=== PATIENT | male | born 1935 | race Caucasian/White ===

== ENCOUNTER 2023-04-21 08:32 | Outpatient (RCR) | payer MEDICARE, SELFPAY ==
[2023-04-21 09:10] VITALS: BP 99/55
[2023-04-21 09:34] VITALS: BP 107/56
[2023-04-21 11:49] VITALS: BP 111/53
== END 2023-05-10 23:59 | disposition home or self-care (01) ==
LOC: OID 08:32
PROVIDERS: ATTENDING PHYSICIAN Internal Medicine Hematology & Oncology; PRIMARYCARE PHYSICIAN Urology
DX: D61.818 Other pancytopenia (principal)
CPT/HCPCS: 36430; 86850; 86900; 86901; 86920; P9016

== ENCOUNTER 2023-05-10 22:52 | Inpatient (IN) | payer MEDICARE, SELFPAY ==
[2023-05-10 16:18] VITALS: BMI 20.6
[2023-05-10 16:23] VITALS: BP 156/95
[2023-05-10 17:06] LABS: % Basophils 0.3 % (0-2); % Immature Granulocytes 3.3 % (0-0.5); % Lymphocytes 20.6 % (20.5-51.1); % Monocytes 27.2 % (1.7-9.3); % Neutrophils 48.6 % (42.2-75.2); Absolute Immature Granulocytes 0.1 10^3/uL (0-0.05); Absolute Lymphocytes 0.6 10^3/uL (1.2-3.4); Absolute Monocytes 0.8 10^3/uL (0.1-0.6); Absolute Neutrophils 1.5 10^3/uL (1.4-6.5); Hematocrit 29.3 % (39.0-52.0); Mean Corp Hgb Conc. 30.7 g/dL (33.0-37.0); Mean Corpuscular Hgb 30.6 pg (27.0-31.0); Mean Corpuscular Volume 99.7 fL (80.0-94.0); Nucleated Red Blood Cells % 2.3 % (-); Platelet Count 49 10^3/uL (130-400); Red Blood Cell Count 2.94 10^6/uL (4.70-6.10); Red Cell Dist. Width 22.7 % (11.5-14.5)
[2023-05-10 17:11] LABS: ALT (SGPT) 17 U/L (0-50); AST (SGOT) 29 U/L (17-59); Albumin 3.7 g/dl (3.5-5.0); Alkaline Phosphatase 73 U/L (38-126); Blood Urea Nitrogen 31 mg/dl (9-20); Calcium 9.1 mg/dl (8.4-10.2); Carbon Dioxide 25 mmol/L (22-30); Chloride 106 mmol/L (98-107); Estimated Creatinine Clearance 54 ml/min; Glucose 129 mg/dl (70-99); Potassium 3.6 mmol/L (3.5-5.1); Sodium 140 mmol/L (135-145); Total Protein 6.5 g/dl (6.3-8.2); eGFR > 60.00
[2023-05-10 17:22] LABS: Troponin I 0.016 ng/ml
[2023-05-10 18:10] LABS: Absolute Neutrophils -Man Diff 1.5 10^3/uL (1.4-6.5); Band Neutrophils 0 % (0-3); Lymphocytes 26 % (20-51); Monocytes 21 % (2-9); Pathologist Reviewed No; Segmented Neutrophils 53 % (42-75)
[2023-05-10 18:11] LABS: Platelets Checked Yes
[2023-05-10 18:12] LABS: Anisocytosis 2+; Macrocytosis 1+; Normal RBC Morphology No; Ovalocytes 4+
[2023-05-10 18:25] LABS: Total Cells Counted 100
[2023-05-10 18:44] VITALS: BP 161/101
[2023-05-10 19:00] VITALS: BP 157/98
[2023-05-10 20:00] VITALS: BP 148/83
[2023-05-10 20:05] LABS: NT-proBNP 21300 pg/ml
--- NOTE | 2023-05-10 21:25 | ED.GENMED ---
History of Present Illness
General
Chief Complaint: Breathing Problem
Source: patient and family
Exam Limitations: none
Time Seen by Provider: 05/10/23 18:49
Nursing documentation reviewed up to this point in time: agreed with
Travel History
Have you had any contact with someone who has COVID-19?: No
Do you have any symptoms of coronavirus? Fever > 100 degrees, chills, cough, shortness of breath, sore throat, loss of taste or smell, muscle aches, or headache?: No
History of Present Illness
History of Present Illness:
87-year-old male presents emergency department due to difficulty with breathing when walking. He denies chest pain. He did have chest pain earlier. No nausea vomiting diarrhea, no fevers. Daughter notes he has had some swelling in his legs.
Past History
Past History
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
ED Past Surgical History: Cardiac
Social History
Tobacco: Non-smoker
Alcohol: None
Drug: None
Personal:
Living: with family
Employment: Other
Family History
Family History: Other
Review of Systems
Review of Systems
Allergies reviewed?: Yes
All Other Systems: Not applicable
Constitutional: Reports weight gain
EENT: Reports no symptoms
Respiratory: Reports trouble breathing
Cardiac: Reports chest pain
ABD/GI: Reports no symptoms
: Reports no symptoms
Musculoskeletal: Reports edema
Skin: Reports no symptoms
Neurological: Reports no symptoms
Endocrine: Reports no symptoms
Hematologic/Lymphatic: Reports no symptoms
Psychiatric: Reports no symptoms
Phy Exam
Physical Exam
Physical Exam:
Physical Exam
General: afebrile
Neck: supple. no meningeal signs. normal posterior pharynx
Heart: s1/s2 regular rate and rhythm, no murmur. equal radial
pulses.
HEENT: Pupils equal round reactive to light, EOMI
Lungs: mild respiratory distress. rales bilaterally
Abdomen: normal bowel sounds. not tender. no CVAT
Neuro: alert and oriented. no focal neurological deficits cranial nerves II through XII intact
Skin: no rash
Psychiatric: well kept. interactive and cooperative
Extremities: no edema. no calf tenderness. negative homans. good distal pulses
Scores
Heart Failure Risk
Heart Failure Risk Score: Yes
History of Stroke or TIA: No
History of intubation for respiratory distress: No
Heart rate on ED arrival >/= 110: No
SaO2 <90% on arrival on room air: No
HR >/=110 during 3min walk test (or too ill to perform test): No
ECG has acute ischemic changes: No
Urea >/=12mmol/L (BUN 33.6mg/dL): No
Serum CO2>/=35mmol/L: No
Troponin I or T elevated to IL Level (0.4mg/dL): No
NT-proBNP >/=5,000ng/L (5,000pg/ml): Yes
HF Risk Score: 1
Admission Status: MEDIUM RISK 5.1% Consider observation or discharge to home with homecare & f/u visit to PCP/Correctional Therapy Director, or SNF for treatment
Course
Orders/Labs/Results
Orders:
Orders
05/10/23 16:20
Electrocardiogram (*1) Urgent
Reason for Study: Chest Pain
EKG- Treatment ONCE
05/10/23 16:39
Complete Blood Count/With Diff Urgent
Comprehensive Metabolic Panel Urgent
Manual Differential Urgent
Comment: ADD ON
NT-proBNP Urgent
Comment: ADD ON
Troponin I Urgent
05/10/23 19:04
Add On- LAB Urgent
Tests Added?: pro bnp
CR Chest - 2 Views Urgent
Comment:
Reason For Exam: short of breath
05/10/23 21:34
Furosemide [Lasix] 40 mg IV NOW STA
05/10/23 22:09
Admit/Transfer Patient As Directed
Co-Sign Provider:
Level of Care: Inpatient admission
Assign to:: Telemetry
Physician / Group: Terrance
Diagnosis: CHF, Right Pleural Effusion
Reason for Telemetry: Acute Heart Failure
Date to Stop Telemetry: 05/13/23
Time to Stop Telemetry: 11:00
Reason for Hospitalization: IV diuretics, thoracentesis
Expected length of stay greater than two midnights?: Yes
ELOS- Estimated Length of Stay in days: 3
I certify the patient meets the requirements for IP care: Yes
05/10/23 22:12
Code Status As Directed
Resuscitation Status: Do not resuscitate
Reached after discussion with pt or family/Healthcare POA: Yes
05/10/23 22:13
DNR Bracelet Application ONCE
05/13/23 11:00
DC Protocol for Telemetry ONCE
Abnormal Lab Results
05/10/23
16:39
WBC 3.0 L 10^3/uL
(4.8-10.8)
RBC 2.94 L 10^6/uL
(4.70-6.10)
Hgb 9.0 L g/dL
(13.0-18.0)
Hct 29.3 L %
(39.0-52.0)
MCV 99.7 H fL
(80.0-94.0)
MCHC 30.7 L g/dL
(33.0-37.0)
RDW 22.7 H %
(11.5-14.5)
Plt Count 49 L 10^3/uL
(130-400)
Abs Immat Gran (auto) 0.1 H 10^3/uL
(0-0.05)
Absolute Lymphs (auto) 0.6 L 10^3/uL
(1.2-3.4)
Absolute Monos (auto) 0.8 H 10^3/uL
(0.1-0.6)
Immature Gran % 3.3 H %
(0-0.5)
Monocytes % 27.2 H %
(1.7-9.3)
Monocytes (Manual) 21 H %
(2-9)
BUN 31 H mg/dl
(9-20)
Glucose 129 H mg/dl
(70-99)
Total Bilirubin 2.0 H mg/dl
(0.2-1.3)
05/10/23 16:39
05/10/23 16:39
Vital Signs
Initial and Last Documented VS:
Initial Vital Signs
Temp Pulse Resp BP Pulse Ox
97.8 F 90 16 156/95 99
05/10/23 16:23 05/10/23 16:23 05/10/23 16:23 05/10/23 16:23 05/10/23 16:23
Last Documented Vital Signs
Temp Pulse Resp BP Pulse Ox
97.8 F 93 32 155/83 96
05/10/23 16:23 05/10/23 23:20 05/10/23 20:15 05/10/23 23:20 05/10/23 22:15
MDM/Problems Addressed
Differential Diagnosis Includes:
pneumonia, chf
MDM/Problems Addressed:
87-year-old male with CHF exacerbation, admit to hospitalist
*Critical Care Note
Total Time (30-74mins, 75-104mins- exclusive of procedures): Not Applicable
ED Attending Note
-
Portions of this chart may have been created with voice recognition software.� Occasional wrong word or��sound alike� substitutions may have occurred due to the inherent limitations of voice recognition software.
Discharge Plan
Departure
Patient Disposition: Admit
Date of Disposition: 05/10/23
Time of Disposition: 21:26
Admit to: Telemetry
Presentation/result/management discussed w/ accepting MD/DO: Hospitalist
Condition: Good
Discharge Problem:
Acute exacerbation of CHF (congestive heart failure)
Interventions
Interventions:
*Risk Screen - Suicide Last Done: 05/10/23 16:23
*Neglect/Abuse Screening Last Done: 05/10/23 16:23
ED- Fall Risk Assessment Last Done: 05/10/23 16:23
*ED COVID-19 Vaccine History Last Done: 05/10/23 16:23
ED- Cardiac Assessment Last Done: 05/10/23 18:51
ED- Pulmonary Assessment Last Done: 05/10/23 18:51
--- NOTE | 2023-05-10 22:21 | HPS.HSE ---
Addendum entered and electronically signed by Jurgen Carlos DO 05/10/23 23:20:
Patient seen and examined independently. Agree with findings and plan as set forth by Aminata Cervantes PA-C.
Patient is an 87y M with PMH significant for ASCVD, A-Fib an MDS who presents to ED complaining of several weeks of worsening SOB. Patient states that he has been more edematous in the lower extremities as well. Dyspnea was initially with
exertion but is now present at rest as well. Occasional chest discomfort, but pain-free at present. His dyspnea is worse with reclining / lying flat. Patient does not weigh himself at home. He denies any prior history of thoracentesis.
Ass:
Acute on Chronic HFpEF
Right > Left Pleural Effusions
ASCVD
Paroxysmal Atrial Fibrillation
Valvular Heart Disease
Benign Hypertension
MDS / Smoldering Myeloma
Plan:
Admit for further evaluation and treatment.
IV Lasix for diuresis and follow for improvement in dyspnea, edema, etc.
IR evaluation for diagnostic / therapeutic R thoracentesis.
Likely secondary to chronic CHF.
Cardiology evaluation.
Update Echo.
Continue usual outpatient CV med regimen.
Original Note:
Family Physician
-
Family Physician: Bianca Mai DO
Chief Complaint
-
Shortness of breath
History of Present Illness
Patient is an 87-year-old male past medical history of CAD, Valvular Heart Disease, A-Fib and MDS who presents with increasing shortness of breath. Additional history is obtained from patient's daughter at the bedside. Patient been having
increasing lower extremity edema for an extended period of time. However, over the last couple of days his daughter noticed that his hands were also swollen. Patient also developed increased dyspnea on exertion over the last 2 days. He reports
associated orthopnea as well as intermittent chest discomfort. He does not weigh himself on a regular basis. He denies fevers, sweats or chills.
Medical History
Past Medical History
Past Medical History: Reports Other
Additional Past Medical History:
Coronary Artery Disease s/p Stent
Chronic HFpEF
Paroxysmal Atrial Fibrillation
Valvular Heart Disease
Essential Hypertension
Hyperlipidemia
Myelodysplastic Syndrome / Smoldering Multiple Myeloma
BPH
Past Surgical History: Reports Other
Additional Past Surgical History:
Bioprosthetic Aortic Valve Replacement x 2
Right Carotid Endarterectomy
Appendectomy
Hernia Repair
Social History
Tobacco: Former Smoker
Living: Assisted Living
Family History
Family History: Not pertinent
Allergies / Home Medications
Allergies reflects when Allergies were last updated in [facility].
Home Medications with original date entered in [facility]
Allergy/Medication List:
Allergies
Allergy/AdvReac Type Severity Reaction Status Date / Time
Penicillins Allergy Mild Rash Verified 05/10/23 16:26
Home Medications
rosuvastatin 20 mg tablet 20 mg PO QPM High Cholesterol 07/17/13
ascorbic acid (vitamin C) 250 mg tablet (Vitamin C) 250 mg PO DAILY Supplement 03/01/23
epoetin isatu 40,000 unit/mL injection solution (Procrit) 40,000 unit SC TH low RBC 03/01/23
famotidine 40 mg tablet 40 mg PO DAILY Gastrointestinal Issue 03/01/23
furosemide 20 mg tablet 20 mg PO DAILY Fluid Retention/Swelling 03/01/23
mirabegron 50 mg tablet,extended release 24 hr (Myrbetriq) 50 mg PO DAILY Urinary Issue 03/01/23
oxycodone-acetaminophen 5 mg-325 mg tablet 1 tab PO Q8HPRN PRN severe pain 03/01/23
polyethylene glycol 3350 17 gram oral powder packet (Miralax) 17 g PO DAILYPRN PRN constipation 03/01/23
acetaminophen 325 mg tablet 650 mg PO Q4HPRN PRN mild pain/JACOME/temp> 100.4F #60 tabs 12/04/23
metoprolol tartrate 50 mg tablet 25 mg PO BID 05/10/23
miconazole nitrate 2 % topical ointment (Critic-Aid Clear AF (miconazole)) 1 applic topical BID skin rash 05/10/23
zinc oxide-vitamin B5-vit E 11.3% topical cream (Balmex Adult Care) 1 applic topical BID sacrum and scrotum 05/10/23
Review of Systems
-
A 12 point ROS was completed and negative except as noted: Yes
Constitutional: Denies Fever or Chills
Respiratory: Reports Cough and Trouble Breathing
Cardiac: Reports Chest Pain; Denies Palpitations
Physical Exam
Vital Signs
Vital Signs
Temp Pulse Resp BP Pulse Ox
97.8 F 88 32 148/83 95
05/10/23 16:23 05/10/23 20:15 05/10/23 20:15 05/10/23 20:00 05/10/23 20:15
Physical Exam
General: Comfortable and Other (Visibly short of breath with exertion to lean forward for posterior auscultation of the lungs)
HEENT: Anicteric and Moist mucous membranes
Respiratory: Crackles (Faint left base), Decreased Breath Sounds (Left base) and Other (Absent breath sounds right base)
Cardiac: S1/S2, Regular Rhythm and Murmur (III/ systolic murmur)
GI: Soft and Non Tender
Rectal: Deferred by Provider
Musculoskeletal: No Clubbing, No Cyanosis and Other (+4 pitting edema bilateral lower ext)
Skin: Warm and Dry
Neuro: Awake, Alert, Oriented and Nonfocal/grossly intact
Psych: Calm
Laboratory Results
-
05/10/23 16:39
05/10/23 16:39
Laboratory Results
Total Bilirubin 2.0 mg/dl (0.2-1.3) H 05/10/23 16:39
AST 29 U/L (17-59) 05/10/23 16:39
ALT 17 U/L (0-50) 05/10/23 16:39
Alkaline Phosphatase 73 U/L (38-126) 05/10/23 16:39
Troponin I 0.016 ng/ml 05/10/23 16:39
Data Reviewed
-
Lab Data: Labs Reviewed by me
Old Records: Reviewed
Impression/Plan
-
Acute on Chronic HFpEF
-Consult Cardiology
-Check Echo
-Continue Lasix 40mg IV Daily
-Monitor Is&Os and Daily Weights
Large Right Pleural Effusion
-Consult IR for diagnostic and therapeutic thoracentesis
Coronary Artery Disease s/p Stent
-Patient reports cardiac cath last year which reveal obstructive disease however unable to stent due to chronic thrombocytopenia
Paroxysmal Atrial Fibrillation
-Patient is not on anticoagulant due to thrombocytopenia
-Continue Metoprolol
Valvular Heart Disease s/p AVR x 2
-Check Echo
Essential Hypertension
-Continue Metoprolol
Hyperlipidemia
-Continue Crestor
Myelodysplastic Syndrome / Smoldering Multiple Myeloma
-Monitor CBC
Code Status: DNR
[2023-05-10] MEDS: LASIX 40 MG IV (23:20)
[2023-05-10 23:21] VITALS: BP 155/83
[2023-05-11] VITALS (10 sets, daily range): BP systolic 137–169; BP diastolic 72–93; PULSE 93–111; O2SAT 93–94; BMI 26.5; BMI 26.1
[2023-05-11 06:57] LABS: Mean Corpuscular Hgb 31.7 pg (27.0-31.0); Mean Corpuscular Volume 99.2 fL (80.0-94.0); Platelet Count 41 10^3/uL (130-400); Red Blood Cell Count 2.52 10^6/uL (4.70-6.10); Red Cell Dist. Width 22.4 % (11.5-14.5)
[2023-05-11 07:09] LABS: INR 1.37; PT 16.9 Sec (11.4-14.6)
[2023-05-11 07:16] LABS: White Blood Cell Count 2.2 10^3/uL (4.8-10.8)
[2023-05-11 07:20] LABS: ALT (SGPT) 13 U/L (0-50); AST (SGOT) 28 U/L (17-59); Albumin 3.2 g/dl (3.5-5.0); Alkaline Phosphatase 71 U/L (38-126); Blood Urea Nitrogen 26 mg/dl (9-20); Calcium 8.7 mg/dl (8.4-10.2); Carbon Dioxide 27 mmol/L (22-30); Chloride 110 mmol/L (98-107); Direct Bilirubin 0.5 mg/dl (0.0-0.4); Estimated Creatinine Clearance 69 ml/min; Glucose 96 mg/dl (70-99); HDL Cholesterol 22 mg/dl; LDL Cholesterol, Calculated 44 mg/dl; Magnesium 2.1 mg/dl (1.6-2.3); Potassium 3.3 mmol/L (3.5-5.1); Sodium 139 mmol/L (135-145); Total Bilirubin 1.9 mg/dl (0.2-1.3); Total Cholesterol 83 mg/dl (50-199); Total Protein 5.8 g/dl (6.3-8.2); Triglyceride 89 mg/dl (10-149); Very Low Density Lipoprotein 17 mg/dl (0-30); eGFR > 60.00
[2023-05-11 07:30] LABS: LDH 991 U/L (120-246)
--- NOTE | 2023-05-11 07:31 | SUR.PHASEI ---
@0159; Monitor alarmed for 9 beat run VT.Pt was resting quietly in bed.PT denied CP/SOB.Skin warm and dry.V/S stable and charted.INDIA Martínez, instructed on above note via TT.
[2023-05-11] MEDS: LASIX 40 MG IV ×2 (08:41→16:11)
[2023-05-11] MEDS: LOPRESSOR 25 MG PO (08:42)
[2023-05-11] MEDS: MYRBETRIQ EXTENDED RELEASE 50 MG PO (08:42)
[2023-05-11] MEDS: VITAMIN C 250 MG PO (08:42)
[2023-05-11] MEDS: PEPCID 40 MG PO (08:42)
--- NOTE | 2023-05-11 09:17 | CON.CAR ---
Addendum entered and electronically signed by Cooper Brown MD 05/11/23 11:33:
Patient seen and examined in collaboration with GRAVITY MANAGER; agree with below.
-87-year-old male with medical history as outlined below, including PAF (no anticoagulation secondary to MDS), recent TAVR, and CAD with stenting (specifics unknown) admitted with shortness of breath; cardiology consulted for heart failure, BNP
21,000.
-The patient will undergo an echocardiogram today.
-The patient underwent a right thoracentesis today whereby 2 L were removed.
-Recommend Lasix 40 mg IV twice daily.
-Recommend changing from metoprolol to tartrate to metoprolol succinate 50 mg once daily.
-recruiting assistant; will follow.
Original Note:
Consultation
Consultation Request
Date/Time Consultation Requested: 05/11/2354
Date/Time Consultation Performed: 05/11/23914
Requesting Provider: Aminata WOODS
Performing Provider: Consuelo OSBORNE for Dr. Brown
Reason for Consultation: CHF
Medical History
-
Chief Complaint: SOB
History of Present Illness:
87 y/o male (follows with Dr. Delgado in cardiology office- last seen 2020. [facility] with history of HTN, bio AVR (Shweta 2013), then TAVR 2021 per daughter, transient post-op AFIB (no recurrence
as of 2020 OV), 1st degree AVB, carotid stenosis s/p R CEA, hx coronary stenting- most recent 04/2021 per daughter, but cath over summer no intervention since he is not on AP due to thrombocytopenia, hyperlipidemia, and myelodysplastic syndrome (gets
transfusions/injections) who is here for SOB x 1 week, which worsened over past few days. It is worse with exertion and laying. There is associated BLE edema. He is not on a diuretic. He does not check weights normally. CXR shows b/l pleural
effusions and he is scheduled for thoracentesis. He is also being diuresed. I spoke with his daughter Sameera over the phone for the above information, with patient's permission.
Past Medical History
Past Medical History: Arrhythmias, CAD, HTN, Hypercholesterolemia, Valvular Disease and Other (as above)
Past Surgical History: Cardiac
Social History
Tobacco: Non-Smoker
Living: Assisted Living
Family History
Family History: Reviewed & Not Pertinent
Allergies / Home Medications
Allergy/AdvReac Type Severity Reaction Status Date / Time
Penicillins Allergy Mild Rash Verified 05/10/23 16:26
Medication Instructions Recorded Confirmed Type
rosuvastatin 20 mg tablet 20 mg PO QPM High Cholesterol 07/17/13 05/10/23 History
ascorbic acid (vitamin C) 250 mg 250 mg PO DAILY Supplement 03/01/23 05/10/23 History
tablet (Vitamin C)
epoetin isatu 40,000 unit/mL 40,000 unit SC TH low RBC 03/01/23 05/10/23 History
injection solution (Procrit)
famotidine 40 mg tablet 40 mg PO DAILY Gastrointestinal 03/01/23 05/10/23 History
Issue
furosemide 20 mg tablet 20 mg PO DAILY Fluid 03/01/23 05/10/23 History
Retention/Swelling
mirabegron 50 mg tablet,extended 50 mg PO DAILY Urinary Issue 03/01/23 05/10/23 History
release 24 hr (Myrbetriq)
oxycodone-acetaminophen 5 mg-325 1 tab PO Q8HPRN PRN severe pain 03/01/23 05/10/23 History
mg tablet
polyethylene glycol 3350 17 gram 17 g PO DAILYPRN PRN constipation 03/01/23 05/10/23 History
oral powder packet (Miralax)
acetaminophen 325 mg tablet 650 mg PO Q4HPRN PRN mild 03/13/23 05/10/23 Rx
pain/JACOME/temp> 100.4F #60 tabs
metoprolol tartrate 50 mg tablet 25 mg PO BID 05/10/23 05/10/23 History
miconazole nitrate 2 % topical 1 applic topical BID skin rash 05/10/23 05/10/23 History
ointment (Critic-Aid Clear AF
(miconazole))
zinc oxide-vitamin B5-vit E 11.3% 1 applic topical BID sacrum and 05/10/23 05/10/23 History
topical cream (Balmex Adult Care) scrotum
Review of Systems
-
History Source: Patient and Other (and chart)
All other systems: Negative unless noted
Respiratory: Trouble Breathing
Musculoskeletal: Edema
Physical Exam
Vital Signs
Temp Pulse Resp BP Pulse Ox
98.2 F 98 14 163/93 93
05/11/23 03:10 05/11/23 08:42 05/11/23 03:10 05/11/23 08:42 05/11/23 03:10
Lab Results
05/11/23 06:28
05/11/23 06:28
Troponin I 0.016 ng/ml 05/10/23 16:39
Oce-H-Sxmlqtkkcvp Pept 82766 pg/ml 05/10/23 16:39
Physical Exam
General: Well Developed, Well Nourished and No Apparent Distress
HEENT: Normocephalic and Anicteric
Respiratory: Other (diminished to b/l bases)
Cardiac: Regular Rhythm, Murmur (II/ systolic) and Peripheral Edema (moderate BLE edema)
Musculoskeletal: Edema
Skin: Warm and Dry
Neuro: Awake, Alert and Oriented
Psych: Calm
Impression / Plan
-
Acute HF (type unknown, but echo 2020 EF normal)
-update echo
-IV Lasix, which requires intensive monitoring for toxicity- will increase to BID
Pleural effusion:
-getting thoracentesis today
Hypokalemia:
-replace now and follow closely with diuresis. Added standing potassium as well.
NSVT:
-9 beat run on monitor
-replace potassium as above
-check echo
-continue BB and follow- adjusting to Toprol XL
CAD:
-hx stenting most recent 04/2021 per my discussion with daughter. Cath in summer 2022, but no intervention due to not on AP as below; also per daughter. Records requested.
-not on ASA due to thrombocytopenia. Continue statin and BB.
-trop is fine.
Bifascicular block:
-new from last EKG I can find 2019
-denies any dizziness
-follow telemetry
hx Bio AVR:
-2013. Then TAVR 04/2021 per my discssion with daughter. Records requested.
-check echo
HTN:
-BP elevated at times
-monitor with diuresis and adjusted BB
Data Reviewed
-
EKG: Tracing Personally Visualized and interpreted (SR with PVC's, bifasicular block)
Radiology: Report Reviewed by me (CXR: Large right and small left pleural effusions.)
Medical Tests (Nuc Med, Echo etc): Report Reviewed by me (echo 08/11/20: Normal left ventricular systolic function. Left ventricular ejection fraction is 70%. Normal right ventricular size and function. Bioprosthetic aortic valve with diminished
excursion, with a peak/mean gradient of 62/30 mmHg. Mild mitral regurgitation. )
Labs: Labs Reviewed by me
[2023-05-11] MEDS: KCL 40 MEQ PO ×2 (10:43→16:10)
[2023-05-11 10:53] LABS: Body Fluid pH 7.52
[2023-05-11 11:01] LABS: Body Fluid WBC 170 /CUMM
[2023-05-11 11:04] LABS: Body Fluid Second Tech CMB
[2023-05-11 11:08] LABS: Body Fluid Amylase < 30 U/L; Body Fluid Glucose 113 mg/dl; Body Fluid LDH 255 U/L; Body Fluid Protein 2.6 g/dl; Body Fluid Triglycerides < 30 mg/dl
--- NOTE | 2023-05-11 16:19 | W.PN.HOSP.TC ---
Today's Communication/Plan
-
Status post thoracentesis.
IV diuresis.
Procrit
Assessment / Plan
Assessment / Plan
Impression:
Acute CHF mildly reduced EF.
Right pleural effusion, large.
Hypokalemia
NSVT
Conditions prior to admission
CAD.
Bifascicular block
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
Essential hypertension.
MDS/smoldering myeloma with chronic pancytopenia.
Plan:
Acute CHF
Right pleural effusion. Thoracentesis 05/11 2 L transudate.
Improved respiratory status and currently off supplemental oxygen.
Repeat echocardiogram 05/11 LVEF 40-45% and large RV, severe by lateral atrial dilation. Status post TAVR, status post bioprosthetic MVR. Pulmonary hypertension with PAP 55-60 mmHg
Continue IV diuresis
Continue beta-kamari, changed to metoprolol succinate.
Hypokalemia.
Replete and monitor with diuresis.
NSVT 9 beat.
Echocardiogram as above.
Continue beta-kamari, follow electrolytes.
CAD with no evidence for acute coronary syndrome.
Continue beta-kamari.
Not on aspirin due to 2 severe anemia.
MDS.
Pancytopenia.
Monitor CBC
Procrit weekly.
Anticipated Discharge: 24 - 48 hours
Subjective/Interval History
-
Date of Service: May 11, 2023
Objective Data
-
Labs:
Laboratory Results
05/11/23
06:28
WBC 2.2 L*
Hgb 8.0 L
Hct 25.0 L
Plt Count 41 L
PT 16.9 H
INR 1.37
Sodium 139
Potassium 3.3 L
Chloride 110 H
Carbon Dioxide 27
BUN 26 H
Creatinine 0.9
Glucose 96
Calcium 8.7
Total Bilirubin 1.9 H
AST 28
ALT 13
Alkaline Phosphatase 71
Vital Signs:
Vital Signs
Temp Pulse Resp BP Pulse Ox
98.2 F 89 17 145/82 96
05/11/23 12:42 05/11/23 16:11 05/11/23 12:42 05/11/23 16:11 05/11/23 12:42
I&O
05/10/23 05/11/23 05/12/23
06:59 06:59 06:59
Intake Total 0 / 0
Output Total 1899
Balance -1899 / -1899
Physical Exam
-
General: Well Developed and No Apparent Distress
HEENT: Normocephalic, Atraumatic and Moist Mucous Membranes
Respiratory: Clear to Auscultation
Cardiac: Regular Rhythm and S1/S2; Negative Murmur, Rub or Gallop
GI: Soft, Nontender, Nondistended and Normal Bowel Sounds; Negative Organomegaly
Rectal: Deferred by Provider
Musculoskeletal: No Clubbing, No Cyanosis and No Edema
Skin: Negative Rash
Neuro: Nonfocal/Grossly Intact
--- NOTE | 2023-05-11 16:27 | CM ---
met with daughter and che bundy.patient was not able to answeer many of the questions i pasked him.patient lives at [facility] .his is in lock down unit at [facility].patient ambulates with a walker,is independent in bathing and
grooming.he is adm with chf/r pleural effusion and will discharge bath to [facility] when stable for discharge.daughter asking if attending will place a consult to dr moe whom patient is due to see in follow up.
Plan discharge back to [facility] when stable.daughter gregor will transport back to facility.
[2023-05-11] MEDS: CRESTOR 20 MG PO (17:15)
[2023-05-11] MEDS: TOPROL XL 50 MG PO (17:16)
[2023-05-11] MEDS: RETACRIT 40000 UNITS SC (17:29)
[2023-05-12] VITALS (7 sets, daily range): BP systolic 93–148; BP diastolic 41–85; PULSE 78; O2SAT 96; BMI 23.9
[2023-05-12] MEDS: LASIX 20 MG IV (00:17)
--- NOTE | 2023-05-12 05:47 | PTCARENOTE ---
Pt SpO2 90% on RA, placed on 2L SpO2 93%. Upon assessment this RN heard B/L coarse crackles. HAND SPRING REPAIRER HELPER notified. Stat IV Lasix ordered - see MAR for administration. Follow up assessment pt lungs clear to auscultate. Pt comfortable in bed. VSS. Will
continue to monitor.
[2023-05-12 06:34] LABS: Hematocrit 25.6 % (39.0-52.0); Hemoglobin 7.9 g/dL (13.0-18.0); Mean Corp Hgb Conc. 30.9 g/dL (33.0-37.0); Mean Corpuscular Hgb 30.7 pg (27.0-31.0); Mean Corpuscular Volume 99.6 fL (80.0-94.0); Platelet Count 34 10^3/uL (130-400); Red Blood Cell Count 2.57 10^6/uL (4.70-6.10); Red Cell Dist. Width 22.4 % (11.5-14.5)
[2023-05-12 07:04] LABS: Blood Urea Nitrogen 31 mg/dl (9-20); Calcium 8.7 mg/dl (8.4-10.2); Carbon Dioxide 30 mmol/L (22-30); Chloride 103 mmol/L (98-107); Estimated Creatinine Clearance 69 ml/min; Glucose 102 mg/dl (70-99); Potassium 3.2 mmol/L (3.5-5.1); Sodium 140 mmol/L (135-145); eGFR > 60.00
[2023-05-12 07:48] LABS: Band Neutrophils 4 % (0-3); Lymphocytes 27 % (20-51); Metamyelocytes 2 % (-); Monocytes 22 % (2-9); Myelocytes 1 % (-); Normal RBC Morphology No; Nucleated Red Blood Cells 2 (-); Platelets Checked Yes; Segmented Neutrophils 44 % (42-75)
[2023-05-12 07:51] LABS: Acanthocytes FEW; Anisocytosis 1+; Hypochromasia 1+; Ovalocytes 3+; Total Cells Counted 100
[2023-05-12 07:54] LABS: Absolute Neutrophils -Man Diff 0.9 10^3/uL (1.4-6.5)
[2023-05-12] MEDS: MYRBETRIQ EXTENDED RELEASE 50 MG PO (08:35)
[2023-05-12] MEDS: LASIX 40 MG IV ×2 (08:35→15:32)
[2023-05-12] MEDS: KCL 40 MEQ PO ×2 (08:35→20:26)
[2023-05-12] MEDS: PEPCID 40 MG PO (08:35)
[2023-05-12] MEDS: VITAMIN C 250 MG PO (08:35)
--- NOTE | 2023-05-12 08:37 | W.PN.CD ---
Today's Communication / Plan
-
- IV Lasix BID. Aim for at least 180 lbs
- replete K again
- Echo stable but reflects HF (PASP up, etc)
Impression / Plan
-
Impression: 87-year-old male with dyspnea concerning for HFrEF
Plan
Acute HF (type unknown, but echo 2020 EF normal)
-updated echo -> EF 40-45%, TAVR OK, PASP 60
-IV Lasix BID
-unclear goal weight - he doesn't know ('180-something') and recorded weights are scattered.
-aim for at least 180 lbs
Pleural effusion:
Hypokalemia: replete again
NSVT:
- replete K
- continue BB
- EF 40-45%
CAD:
-hx stenting most recent 04/2021 per daughter. Cath in summer 2022, but no intervention due to not on AP as below; also per daughter. Records requested.
-not on ASA due to thrombocytopenia. Continue statin and BB.
-trop is fine.
Bifascicular block:
-new from last EKG 2019
-denies any dizziness
-follow telemetry
hx Bio AVR:
-2013. Then TAVR 04/2021 . Records requested.
-check echo
HTN:
-BP elevated at times
-monitor with diuresis and adjusted BB
Subjective
Data
TTE �
Left ventricular ejection fraction is approximately 40-45%. Mild global hypokinesis with severe inferolateral wall hypokinesis/akinesis.
Mild to moderate mitral regurgitation.
Status-post TAVR in previous bioprosthetic aortic valve replacement; peak/mean�gradients of 33/17 mmHg.� Trace aortic regurgitation.
Mild to moderate tricuspid regurgitation. Estimated pulmonary artery pressure of 55-60 mmHg.�Right and left pleural effusion present.
�
Physical Exam
Vital Signs/Labs
Vital Signs
Temp Pulse Resp BP Pulse Ox
36.5 C 93 20 148/85 95
05/12/23 03:49 05/12/23 03:49 05/12/23 03:49 05/12/23 03:49 05/12/23 03:49
05/11/23 05/12/23 05/13/23
06:59 06:59 06:59
Actual Weight 203 lb 186 lb
05/12/23 06:08
05/12/23 06:08
PT 16.9 Sec (11.4-14.6) H 05/11/23 06:28
INR 1.37 05/11/23 06:28
Magnesium 2.1 mg/dl (1.6-2.3) 05/11/23 06:28
Triglycerides 89 mg/dl (10-149) 05/11/23 06:28
LDL Cholesterol, Calc 44 mg/dl 05/11/23 06:28
VLDL Cholesterol, Calc 17 mg/dl (0-30) 05/11/23 06:28
HDL Cholesterol 22 mg/dl 05/11/23 06:28
05/10/23
16:39
Nim-B-Rztcpweiwtp Pept [id number]
LAB Results
05/10/23
16:39
Troponin I 0.016
Physical Exam
Constitutional: No acute distress
EENT: Anicteric and Moist mucous membranes
Cardiovascular: Rhythm & rate is regular, Diastolic murmur absent, Pedal edema present and Systolic murmur present
Respiratory: Respiratory effort normal and Crackles Present
GI: Soft, Distention absent and Non tender
Neuro/Psych: Alert
Data Reviewed
-
Date of Service: May 12, 2023
Labs: Other (PVS without NSVT)
--- NOTE | 2023-05-12 14:00 | CON.ONC ---
Impression
Impression
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
Smoldering�multiple�myeloma
Chronic pancytopenia
Neutropenia
Symptomatic�anemia
Bilateral pleural effusions R>L s/p thoracentesis
Acute SOB/HAND
Plan
Plan
Neutropenic precautions
Follow CBC w/ diff daily
Transfuse as needed to maintain Hgb >7.5 and PLT >15
Supportive care s/p thoracentesis
Weekly regimen with [facility] as follows:
1.�Nplate�10�mg/kg�weekly
2.�Aranesp�300�mcg�weekly
3.�Zarxio�480�mcg�weekly
4.�Transfusions�when�necessary: Hgb�<7.5�or�PLT<15,000
Last administered on 05/04/23; was scheduled 05/11 but hospitalized
[facility] office has been notified of patient's admission. He is scheduled 05/18/23@ 10:30am for follow up and weekly injections. Discussed with daughter that we can adjust accordingly based on hospital discharge. We will follow along.
Patient History
History of Present Illness
Asim Zhong is an 87 year old male known to Dr. 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 He has had multiple bone marrow biopsies most recently 221. He has
been managed on a combination of Romiplostim (Nplate) and Aranesp as well as transfusion support as needed. He was last seen in the office 04/20/23 and received Aranesp and Nplate on 05/04/23. He recently relocated from [facility] to [facility] to
be closer to family. Family has been opposed to systemic chemotherapy and additional bone marrow biopsies. They are agreeable to blood transfusions and wish for palliative/supportive care.
Patient had called our office 05/08 with complaints of shortness of breath and fatigue x2-3 days. He was instructed to call Cardiology. He presented to the ER 05/10 with worsening dyspnea on exertion and at rest, lower extremity edema, and
intermittent chest pain. CXR revealed bilateral pleural effusions R>L. He underwent right thoracentesis yesterday 05/11 in which 1900cc was drained. He was admitted for further evaluation and treatment.
Past-Medical/Surgical History
Myelodysplastic syndrome
Smoldering multiple myeloma
Chronic pancytopenia
CAD s/p cardiac stent 2021
T12 compression fracture
Aortic valve replacement 2013
Appendectomy
Hernia repair
Former smoker
Current ETOH weekly
Hypercholesterolemia
Patient Medication
Medication Instructions Recorded Confirmed Last Taken Type
rosuvastatin 20 mg tablet 20 mg PO QPM High Cholesterol 07/17/13 05/10/23 04/20/23 History
ascorbic acid (vitamin C) 250 mg 250 mg PO DAILY Supplement 03/01/23 05/10/23 04/21/23 History
tablet (Vitamin C)
epoetin isatu 40,000 unit/mL 40,000 unit SC TH low RBC 03/01/23 05/10/23 03/12/23 History
injection solution (Procrit)
famotidine 40 mg tablet 40 mg PO DAILY Gastrointestinal 03/01/23 05/10/23 04/21/23 History
Issue
furosemide 20 mg tablet 20 mg PO DAILY Fluid 03/01/23 05/10/23 04/21/23 History
Retention/Swelling
mirabegron 50 mg tablet,extended 50 mg PO DAILY Urinary Issue 03/01/23 05/10/23 04/21/23 History
release 24 hr (Myrbetriq)
oxycodone-acetaminophen 5 mg-325 1 tab PO Q8HPRN PRN severe pain 03/01/23 05/10/23 03/12/23 History
mg tablet
polyethylene glycol 3350 17 gram 17 g PO DAILYPRN PRN constipation 03/01/23 05/10/23 03/12/23 History
oral powder packet (Miralax)
acetaminophen 325 mg tablet 650 mg PO Q4HPRN PRN mild 03/13/23 05/10/23 Unknown Rx
pain/JACOME/temp> 100.4F #60 tabs
metoprolol tartrate 50 mg tablet 25 mg PO BID Blood Pressure/Atrial 05/10/23 05/10/23 Unknown History
fibrillation
miconazole nitrate 2 % topical 1 applic topical BID skin rash 05/10/23 05/10/23 Unknown History
ointment (Critic-Aid Clear AF
(miconazole))
zinc oxide-vitamin B5-vit E 11.3% 1 applic topical BID sacrum and 05/10/23 05/10/23 Unknown History
topical cream (Balmex Adult [facility]) scrotum
Active Medications
Generic Name Dose Route Start Last Admin
Trade Name Freq PRN Reason Stop Dose Admin
Acetaminophen 650 mg 05/11/23 00:55
Acetaminophen 325 Mg Tablet PO 06/08/23 00:54
Q4HPRN PRN
mild pain/JACOME/temp> 100.4F
Ascorbic Acid 250 mg 05/11/23 08:00 05/12/23 08:35
Ascorbic Acid 250 Mg Tablet PO 06/08/23 07:59 250 mg
DAILY NI Administration
Famotidine 40 mg 05/11/23 08:00 05/12/23 08:35
Famotidine 40 Mg Tablet PO 06/08/23 07:59 40 mg
DAILY NI Administration
Furosemide 40 mg 05/11/23 16:00 05/12/23 08:35
Furosemide 40 Mg (10 Mg/Ml) 4 Ml Vial IV 06/08/23 15:59 40 mg
BID AT 0800,1600 NI Administration
Metoprolol Succinate 50 mg 05/11/23 18:00 05/11/23 17:16
Metoprolol 50 Mg Extended Release Tablet PO 06/08/23 17:59 50 mg
QPM NI Administration
Mirabegron 50 mg 05/11/23 08:00 05/12/23 08:35
Mirabegron Extended Release 25 Mg Tab (Non Form) PO 06/08/23 07:59 50 mg
DAILY NI Administration
Oxycodone/Acetaminophen 1 tablet 05/11/23 00:55
Oxycodone 5 Mg/Apap 325 Mg (Percocet) PO 05/25/23 00:54
Q8HPRN PRN
severe pain
Potassium Chloride 40 meq 05/12/23 20:00
Potassium Chloride 20 Meq Extended Release Tablet PO 06/09/23 19:59
BID NI
Rosuvastatin Calcium 20 mg 05/11/23 18:00 05/11/23 17:15
Rosuvastatin (Crestor) 20 Mg Tablet PO 06/08/23 17:59 20 mg
QPM NI Administration
Sodium Chloride 0 flush 05/11/23 01:00
Sodium Chloride 0.9% (Flush) Syringe IV 06/08/23 00:59
PER PROTOCOL NI
Review of Systems
-
Unable to obtain full review of systems at this time due to: Acuity
History Source: Family, Physician, Coordinated Provider and Records
Constitutional: Reports Fatigue
EENT: Reports No Symptoms
Respiratory: Reports No Symptoms
Cardiac: Reports No Symptoms
GI: Reports No Symptoms
Breast: Reports N/A
: Reports No Symptoms
Musculoskeletal: Reports Edema
Skin: Reports No Symptoms
Neuro: Reports No Symptoms
Endocrine: Reports No Symptoms
Hematologic/Lymphatic: Reports Bruising
Allergy / Immunology: Reports No Symptoms
Psych: Reports No Symptoms
Physical Exam
-
Patient is resting in bed, dozing off at times. Arouses to voice although hard of hearing. Forgetful. He states his breathing is more comfortable s/p thoracentesis. Daughter at bedside.
General: Comfortable and Appears Chronically Ill; Negative Respiratory Distress, Pain or Chills
HEENT: Negative Jaundice
Cardiology: Normal Sinus Rhythm
Pulmonary: Other (coarse/dim on RA)
GI: Normal Bowel Sounds
Genito-Urinary: Other (condom catheter in place, clear yellow urine)
Musculoskeletal: Edema, Right Lower Extrem (+2 ) and Edema, Left Lower Extrem (+2)
Extremities: Pulses Present
Neurology: Non Focal
Skin: Warm
Psych: Calm
Labs
Lab Results
WBC 2.0 10^3/uL (4.8-10.8) L* 05/12/23 06:08
RBC 2.57 10^6/uL (4.70-6.10) L 05/12/23 06:08
Hgb 7.9 g/dL (13.0-18.0) L 05/12/23 06:08
Hct 25.6 % (39.0-52.0) L 05/12/23 06:08
MCV 99.6 fL (80.0-94.0) H 05/12/23 06:08
MCH 30.7 pg (27.0-31.0) 05/12/23 06:08
MCHC 30.9 g/dL (33.0-37.0) L 05/12/23 06:08
RDW 22.4 % (11.5-14.5) H 05/12/23 06:08
Plt Count 34 10^3/uL (130-400) L 05/12/23 06:08
MPV Not Reportable 05/12/23 06:08
Abs Immat Gran (auto) 0.1 10^3/uL (0-0.05) H 05/10/23 16:39
Absolute Neuts (auto) 1.5 10^3/uL (1.4-6.5) 05/10/23 16:39
Absolute Lymphs (auto) 0.6 10^3/uL (1.2-3.4) L 05/10/23 16:39
Absolute Monos (auto) 0.8 10^3/uL (0.1-0.6) H 05/10/23 16:39
Absolute Eos (auto) 0.0 10^3/uL (0-0.7) 05/10/23 16:39
Absolute Basos (auto) 0.0 10^3/uL (0-0.2) 05/10/23 16:39
Immature Gran % 3.3 % (0-0.5) H 05/10/23 16:39
Neutrophils % 48.6 % (42.2-75.2) 05/10/23 16:39
Lymphocytes % 20.6 % (20.5-51.1) 05/10/23 16:39
Monocytes % 27.2 % (1.7-9.3) H 05/10/23 16:39
Eosinophils % 0.0 % (0-6) 05/10/23 16:39
Basophils % 0.3 % (0-2) 05/10/23 16:39
Creatinine 0.9 mg/dL (0.7-1.3) 05/12/23 06:08
05/10/23 CXR: Large right and small left pleural effusions.
05/11/23 Successful ultrasound-guided thoracentesis, yielding 1900 cc of clear yellow pleural fluid.
Vital Signs
Vital Signs
Temp Pulse Resp BP Pulse Ox
97.5 F 85 17 127/70 93
05/12/23 11:00 05/12/23 11:00 05/12/23 11:00 05/12/23 11:00 05/12/23 11:21
--- NOTE | 2023-05-12 15:27 | CM ---
patient from [facility] adm with chf/right pleural effusion. he had a thoracentesis with 2 liters fluid.on diuretic,seen by pt/ot who recommended patient can return to [facility] where he can access aides to hlep him ambulate.
Plan is to discharge home to [facility].Daughter will trnsport pateint back to facility.
--- NOTE | 2023-05-12 16:54 | W.PN.HOSP.TC ---
Today's Communication/Plan
-
IV diuresis
Monitor CBC
Assessment / Plan
Assessment / Plan
Impression:
Acute CHF mildly reduced EF.
Right pleural effusion, large.
Hypokalemia
NSVT
Conditions prior to admission
CAD.
Bifascicular block
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
Essential hypertension.
MDS/smoldering myeloma with chronic pancytopenia.
Plan:
Acute CHF
Right pleural effusion. Thoracentesis 05/11 2 L transudate.
Improved respiratory status and currently off supplemental oxygen.
Repeat echocardiogram 05/11 LVEF 40-45% and large RV, severe by lateral atrial dilation. Status post TAVR, status post bioprosthetic MVR. Pulmonary hypertension with PAP 55-60 mmHg
Continue IV diuresis. Weight improvement with 93-89 kg.
Continue beta-kamari, changed to metoprolol succinate.
Hypokalemia.
Replete and monitor with diuresis.
NSVT 9 beat.
Echocardiogram as above.
Continue beta-kamari, follow electrolytes.
CAD with no evidence for acute coronary syndrome.
Continue beta-kamari.
Not on aspirin due to 2 severe anemia.
MDS.
Pancytopenia.
Monitor CBC
Procrit weekly administered on 05/11
Hematology/oncology consultation with consideration of Neupogen and Nplate
Discussed with patient's daughter at the bedside
Anticipated Discharge: 24 - 48 hours
Subjective/Interval History
-
Date of Service: May 12, 2023
Objective Data
-
Labs:
Laboratory Results
05/12/23
06:08
WBC 2.0 L*
Hgb 7.9 L
Hct 25.6 L
Plt Count 34 L
Sodium 140
Potassium 3.2 L
Chloride 103
Carbon Dioxide 30
BUN 31 H
Creatinine 0.9
Glucose 102 H
Calcium 8.7
Vital Signs:
Vital Signs
Temp Pulse Resp BP Pulse Ox
98.6 F 77 16 120/60 93
05/12/23 15:00 05/12/23 15:00 05/12/23 15:00 05/12/23 15:32 05/12/23 15:00
I&O
05/11/23 05/12/23 05/13/23
06:59 06:59 06:59
Intake Total 0 / 0 710 / 710
Output Total 1900 / 1900 4700 / 4700
Balance -1900 / -1900 -3990 / -3990
Physical Exam
-
General: Well Developed and No Apparent Distress
HEENT: Normocephalic, Atraumatic and Moist Mucous Membranes
Respiratory: Clear to Auscultation
Cardiac: Regular Rhythm and S1/S2; Negative Murmur, Rub or Gallop
GI: Soft, Nontender, Nondistended and Normal Bowel Sounds; Negative Organomegaly
Rectal: Deferred by Provider
Musculoskeletal: No Clubbing, No Cyanosis and No Edema
Skin: Negative Rash
Neuro: Nonfocal/Grossly Intact
[2023-05-12] MEDS: TOPROL XL 50 MG PO (17:25)
[2023-05-12] MEDS: CRESTOR 20 MG PO (17:25)
[2023-05-13 03:45] VITALS: BP 101/48
[2023-05-13 05:47] VITALS: BMI 24.1
[2023-05-13 06:00] VITALS: BMI 23.4
[2023-05-13 07:06] LABS: Mean Corp Hgb Conc. 30.8 g/dL (33.0-37.0); Mean Corpuscular Hgb 30.4 pg (27.0-31.0); Mean Corpuscular Volume 98.9 fL (80.0-94.0); Nucleated Red Blood Cells % 1.2 % (-); Red Blood Cell Count 2.63 10^6/uL (4.70-6.10); Red Cell Dist. Width 21.9 % (11.5-14.5)
--- NOTE | 2023-05-13 07:16 | W.PN.CD ---
Today's Communication / Plan
-
-Continue 40 mg IV BID.
-Aggressively replete potassium.
Impression / Plan
-
Impression: 87-year-old male with dyspnea concerning for HFrEF
Plan
Acute HFrEF (40-45%):
-updated echo -> EF 40-45%, TAVR OK, PASP 60
-Continue 40 mg IV BID.
-unclear goal weight - he doesn't know ('180-something') and recorded weights are scattered.
-aim for at least 180 lbs
Pleural effusion:
-Status-postthoracentesis.
Hypokalemia:
-Aggressively replete potassium.
NSVT:
-Telemetry stable.
-Continue Toprol-XL 50 mg daily.
CAD:
-hx stenting most recent 04/2021 per daughter. Cath in summer 2022, but no intervention due to not on AP as below; also per daughter. Records requested.
-not on ASA due to thrombocytopenia. Continue statin and BB.
-trop is fine.
Bifascicular block:
-new from last EKG 2019, but had a recent TAVR.
-denies any dizziness
-Telemetry stable.
hx Bio AVR:
-2013. Then TAVR 04/2021 . Records requested.
-check echo
HTN:
-BP elevated at times
-monitor with diuresis and adjusted BB
Subjective:
No major events overnight. No cardiac complaints this a.m.
Data
TTE 05/11/2023:
Left ventricular ejection fraction is approximately 40-45%. Mild global hypokinesis with severe inferolateral wall hypokinesis/akinesis.
Mild to moderate mitral regurgitation.
Status-post TAVR in previous bioprosthetic aortic valve replacement; peak/mean�gradients of 33/17 mmHg.� Trace aortic regurgitation.
Mild to moderate tricuspid regurgitation. Estimated pulmonary artery pressure of 55-60 mmHg.�Right and left pleural effusion present.
�
Physical Exam
Vital Signs/Labs
Vital Signs
Temp Pulse Resp BP Pulse Ox
98.4 F 72 18 101/48 92
05/13/23 03:45 05/13/23 03:45 05/13/23 03:45 05/13/23 03:45 05/13/23 03:45
05/12/23 05/13/23 05/14/23
06:59 06:59 06:59
Actual Weight 84.368 kg 85.1 kg
PT 16.9 Sec (11.4-14.6) H 05/11/23 06:28
INR 1.37 05/11/23 06:28
Magnesium 2.1 mg/dl (1.6-2.3) 05/11/23 06:28
Triglycerides 89 mg/dl (10-149) 05/11/23 06:28
LDL Cholesterol, Calc 44 mg/dl 05/11/23 06:28
VLDL Cholesterol, Calc 17 mg/dl (0-30) 05/11/23 06:28
HDL Cholesterol 22 mg/dl 05/11/23 06:28
05/10/23
16:39
Vcr-V-Xwgmfkesnky Pept [id number]
LAB Results
05/10/23
16:39
Troponin I 0.016
Physical Exam
Constitutional: No acute distress and Comfortable
EENT: Anicteric
Cardiovascular: Rhythm & rate is regular, Pedal edema present (2+), Systolic murmur present (2-3/6) and S1S2 is normal
Respiratory: Respiratory effort normal and Lungs clear to auscul.
GI: Soft
Neuro/Psych: AO x 3
Other: Skin (Warm, dry, intact)
Data Reviewed
-
Date of Service: May 13, 2023
EKG: Tracing Personally Visualized and interpreted (Telemetry: Sinus rhythm with occasional PVCs)
Echo: Tracing Personally Visualized and interpreted (EF 40-45%)
Labs: Labs Reviewed by me
[2023-05-13 07:27] LABS: Blood Urea Nitrogen 39 mg/dl (9-20); Calcium 8.3 mg/dl (8.4-10.2); Carbon Dioxide 31 mmol/L (22-30); Chloride 106 mmol/L (98-107); Estimated Creatinine Clearance 56 ml/min; Glucose 83 mg/dl (70-99); Potassium 3.8 mmol/L (3.5-5.1); Sodium 137 mmol/L (135-145); eGFR > 60.00
[2023-05-13 07:35] VITALS: BP 130/67
[2023-05-13 07:58] LABS: White Blood Cell Count 1.7 10^3/uL (4.8-10.8)
[2023-05-13 08:46] LABS: Anisocytosis 1+; Band Neutrophils 0 % (0-3); Hypochromasia 1+; Lymphocytes 32 % (20-51); Monocytes 16 % (2-9); Myelocytes 2 % (-); Normal RBC Morphology No; Ovalocytes 3+; Platelets Checked Yes; Polychromasia Slight; Segmented Neutrophils 50 % (42-75)
[2023-05-13 08:48] LABS: Absolute Neutrophils -Man Diff 0.8 10^3/uL (1.4-6.5); Platelet Count 28 10^3/uL (130-400)
[2023-05-13] MEDS: KCL 40 MEQ PO ×2 (08:57→19:24)
[2023-05-13] MEDS: LASIX 40 MG IV ×2 (08:57→16:07)
[2023-05-13 08:58] LABS: Total Cells Counted 100
[2023-05-13] MEDS: VITAMIN C 250 MG PO (08:58)
[2023-05-13] MEDS: MYRBETRIQ EXTENDED RELEASE 50 MG PO (08:58)
[2023-05-13] MEDS: PEPCID 40 MG PO (08:59)
[2023-05-13 11:43] VITALS: BP 123/66
--- NOTE | 2023-05-13 12:39 | W.PN.HOSP.TC ---
Today's Communication/Plan
-
Continue current plan
Assessment / Plan
Assessment / Plan
87-year-old male past medical history of CAD, Valvular Heart Disease, A-Fib and MDS who presents with increasing shortness of breath.� Patient has been having increasing lower extremity edema and hands were also swollen.� Patient developed increased
dyspnea on exertion over the last 2 days.� With associated orthopnea as well as intermittent chest discomfort.� He denied fevers, sweats or chills.
Impression:
Acute CHF mildly reduced EF.
Right pleural effusion, large.
Hypokalemia
NSVT
Conditions prior to admission
CAD.
Bifascicular block
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
Essential hypertension.
MDS/smoldering myeloma with chronic pancytopenia.
Plan:
1. Acute CHF, continues to have cough.
Right pleural effusion. Thoracentesis 05/11 2 L transudate.
Improved respiratory status and currently off supplemental oxygen.
Repeat echocardiogram 05/11 LVEF 40-45% and large RV, severe by lateral atrial dilation. Status post TAVR, status post bioprosthetic MVR. Pulmonary hypertension with PAP 55-60 mmHg
-Continue IV diuresis. Weight improvement with 93-89 kg.
-Continue beta-kamari, changed to metoprolol succinate.
2. Hypokalemia. Improving
-Replete and monitor with diuresis.
3. NSVT 9 beat.
Echocardiogram as above.
-Continue beta-kamari, follow electrolytes.
4. CAD with no evidence for acute coronary syndrome.
Not on aspirin due to 2 severe anemia.
-Continue beta-kamari.
5. MDS. with Pancytopenia.
Procrit weekly administered on 05/11
Hematology/oncology consultation with consideration of Neupogen and Nplate
24 hour trend:
WBC 2.0 -> 1.7
H/H 7.9/25.6 -> 8.0/26.0
PLT 34 -> 28
-Monitor CBC
- if he starts to bleed, transfuse platelets
Code DNR
VCD for DVTp
Anticipated Discharge: > 48 hours
Subjective/Interval History
-
Date of Service: May 13, 2023
No new problems. Feels OK.
Objective Data
-
Labs:
Laboratory Results
05/13/23
06:29
WBC 1.7 L*
Hgb 8.0 L
Hct 26.0 L
Plt Count 28 L*
Sodium 137
Potassium 3.8
Chloride 106
Carbon Dioxide 31 H
BUN 39 H
Creatinine 1.1
Glucose 83
Calcium 8.3 L
Vital Signs:
Vital Signs
Temp Pulse Resp BP Pulse Ox
98.0 F 69 16 123/66 96
05/13/23 11:43 05/13/23 11:43 05/13/23 11:43 05/13/23 11:43 05/13/23 11:43
I&O
05/12/23 05/13/23 05/14/23
06:59 06:59 06:59
Intake Total 710 / 710 720 / 720
Output Total 4700 / 4700 2375 / 2375
Balance -3990 / -3990 -1655 / -1655
Review of Systems
-
History Source: Patient
All other systems: Reviewed and negative
Physical Exam
-
General: Well Developed, Well Nourished, No Apparent Distress and Comfortable
HEENT: Normocephalic, Atraumatic, Moist Mucous Membranes, Nose Appears Normal and Ears Appear Normal
Respiratory: Decreased Breath Sounds
Cardiac: Regular Rhythm and S1/S2
GI: Soft, Nontender and Nondistended
Musculoskeletal: No Clubbing, No Cyanosis, No Edema, Edema, Right Lower Extrem and Edema, Left Lower Extrem
Skin: Warm and Dry; Negative Rash or Ulcers
Neuro: Awake, Alert and Oriented
Psych: Calm
Data Reviewed
-
Labs: Labs Reviewed by me
[2023-05-13 15:51] VITALS: BP 123/68
[2023-05-13] MEDS: TOPROL XL 50 MG PO (17:27)
[2023-05-13] MEDS: CRESTOR 20 MG PO (17:27)
[2023-05-13] MEDS: OCEAN, SALINE MIST 1 SPRAYS NASAL (19:24)
[2023-05-13 19:25] VITALS: BP 113/64
[2023-05-13 23:20] VITALS: BP 120/60
[2023-05-14 03:42] VITALS: BP 119/61
[2023-05-14 05:33] VITALS: BMI 21.8
[2023-05-14 07:18] LABS: Hematocrit 25.7 % (39.0-52.0); Hemoglobin 7.7 g/dL (13.0-18.0); Mean Corpuscular Hgb 30.4 pg (27.0-31.0); Mean Corpuscular Volume 101.6 fL (80.0-94.0); Platelet Count 30 10^3/uL (130-400); Red Blood Cell Count 2.53 10^6/uL (4.70-6.10); Red Cell Dist. Width 21.3 % (11.5-14.5)
[2023-05-14 07:27] LABS: White Blood Cell Count 1.2 10^3/uL (4.8-10.8)
[2023-05-14] MEDS: VITAMIN C 250 MG PO (07:55)
[2023-05-14] MEDS: KCL 40 MEQ PO ×2 (07:56→19:30)
[2023-05-14] MEDS: PEPCID 40 MG PO (07:56)
[2023-05-14] MEDS: LASIX 40 MG IV (07:56)
[2023-05-14 07:57] LABS: Blood Urea Nitrogen 41 mg/dl (9-20); Calcium 8.9 mg/dl (8.4-10.2); Carbon Dioxide 32 mmol/L (22-30); Chloride 101 mmol/L (98-107); Estimated Creatinine Clearance 58 ml/min; Glucose 88 mg/dl (70-99); Potassium 3.9 mmol/L (3.5-5.1); Sodium 138 mmol/L (135-145); eGFR > 60.00
[2023-05-14] MEDS: MYRBETRIQ EXTENDED RELEASE 50 MG PO (07:58)
[2023-05-14] MEDS: OCEAN, SALINE MIST 1 SPRAYS NASAL ×2 (07:58→19:30)
[2023-05-14 08:13] VITALS: BP 130/69
--- NOTE | 2023-05-14 08:54 | W.PN.HOSP.TC ---
Today's Communication/Plan
-
see bold
Assessment / Plan
Assessment / Plan
87-year-old male past medical history of CAD, Valvular Heart Disease, A-Fib and MDS who presented with increasing shortness of breath.� Patient has been having increasing lower extremity edema and hands were also swollen.� Patient developed
increased dyspnea on exertion over the last 2 days.� With associated orthopnea as well as intermittent chest discomfort.� He denied fevers, sweats or chills.
Impression:
Acute CHF mildly reduced EF.
Right pleural effusion, large.
Hypokalemia
NSVT
Conditions prior to admission
CAD.
Bifascicular block
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
Essential hypertension.
MDS/smoldering myeloma with chronic pancytopenia.
Plan:
Acute MFmrEF:
-with right pleural effusion s/p thoracentesis on 05/11/23 for 2L transudate
-was on 2L, now weaned to RA
-Repeat echocardiogram 05/11 LVEF 40-45% and large RV, severe by lateral atrial dilation. Status post TAVR, status post bioprosthetic MVR. Pulmonary hypertension with PAP 55-60 mmHg
-Continue IV Lasix (wt continues to decrease), BB
Hypokalemia, resolved
NSVT, 9 beats: Echocardiogram as above. Continue beta-kamari.
CAD: cont BB/statin. Not on ASA due to anemia.
MDS with chronic pancytopenia: Procrit weekly (administered on 05/11). Hematology/oncology consultation with consideration of Neupogen and Nplate.
DNR
SCDs (but with plts 30 remove SCDs if any bruising)
Anticipated Discharge: Within 24 hours
Subjective/Interval History
-
Date of Service: May 14, 2023
Pt reports coughing up 'dark stuff.' Denies hemoptysis.
Objective Data
-
Labs:
Laboratory Results
05/14/23
06:35
WBC 1.2 L*
Hgb 7.7 L
Hct 25.7 L
Plt Count 30 L
Sodium 138
Potassium 3.9
Chloride 101
Carbon Dioxide 32 H
BUN 41 H
Creatinine 1.0
Glucose 88
Calcium 8.9
Vital Signs:
Vital Signs
Temp Pulse Resp BP Pulse Ox
97.8 F 76 16 130/69 96
05/14/23 08:13 05/14/23 08:13 05/14/23 08:13 05/14/23 08:13 05/14/23 08:13
I&O
05/13/23 05/14/23 05/15/23
06:59 06:59 06:59
Intake Total 720 / 720 1140 / 1140
Output Total 2375 / 2375 2750 / 2750
Balance -1655 / -1655 -1610 / -1610
[2023-05-14 12:16] VITALS: BP 134/65
--- NOTE | 2023-05-14 15:11 | W.PN.CD ---
Today's Communication / Plan
-
-Continue 40 mg IV BID; has diuresed well during hospitalization (almost 20 kg).
-Will transition to Lasix 40 mg PO daily starting tomorrow, which should be his new home dose.
-Patient is currently 170 pounds, which should likely be his goal weight.
Impression / Plan
-
Impression: 87-year-old male with dyspnea concerning for HFrEF
Plan
Acute HFrEF (40-45%):
-updated echo -> EF 40-45%, TAVR OK, PASP 60
-Continue 40 mg IV BID; has diuresed well during hospitalization (almost 20 kg).
-Will transition to Lasix 40 mg PO daily starting tomorrow, which should be his new home dose.
-Patient is currently 170 pounds, which should likely be his goal weight.
Pleural effusion:
-Stable status-post thoracentesis.
NSVT:
-Telemetry remains remains stable.
-Continue Toprol-XL 50 mg daily.
CAD:
-hx stenting most recent 04/2021 per daughter. Cath in summer 2022, but no intervention due to not on AP as below; also per daughter. Records requested.
-not on ASA due to thrombocytopenia. Continue statin and BB.
-trop is fine.
Bifascicular block:
-new from last EKG 2019, but had a recent TAVR.
-denies any dizziness
-Telemetry stable.
hx Bio AVR:
-2013. Then TAVR 04/2021 . Records requested.
-Stable.
HTN:
-Now controlled.
Subjective:
No major events overnight. Continues to improve with diuresis.
Data
TTE 05/11/2023:
Left ventricular ejection fraction is approximately 40-45%. Mild global hypokinesis with severe inferolateral wall hypokinesis/akinesis.
Mild to moderate mitral regurgitation.
Status-post TAVR in previous bioprosthetic aortic valve replacement; peak/mean�gradients of 33/17 mmHg.� Trace aortic regurgitation.
Mild to moderate tricuspid regurgitation. Estimated pulmonary artery pressure of 55-60 mmHg.�Right and left pleural effusion present.
�
Physical Exam
Vital Signs/Labs
Vital Signs
Temp Pulse Resp BP Pulse Ox
98.3 F 67 16 134/65 98
05/14/23 12:16 05/14/23 12:16 05/14/23 12:16 05/14/23 12:16 05/14/23 12:16
05/13/23 05/14/23 05/15/23
06:59 06:59 06:59
Actual Weight 82.781 kg 76.856 kg
05/14/23 06:35
05/14/23 06:35
PT 16.9 Sec (11.4-14.6) H 05/11/23 06:28
INR 1.37 05/11/23 06:28
Magnesium 2.1 mg/dl (1.6-2.3) 05/11/23 06:28
Triglycerides 89 mg/dl (10-149) 05/11/23 06:28
LDL Cholesterol, Calc 44 mg/dl 05/11/23 06:28
VLDL Cholesterol, Calc 17 mg/dl (0-30) 05/11/23 06:28
HDL Cholesterol 22 mg/dl 05/11/23 06:28
05/10/23
16:39
[id number] Pept [id number]
Physical Exam
Constitutional: No acute distress and Comfortable
EENT: Anicteric
Cardiovascular: Rhythm & rate is regular, Pedal edema present (1+), Systolic murmur present (Soft 2/6) and S1S2 is normal
Respiratory: Respiratory effort normal and Lungs clear to auscul.
GI: Soft
Neuro/Psych: AO x 3
Other: Skin (Warm, dry, intact)
Data Reviewed
-
Date of Service: May 14, 2023
EKG: Tracing Personally Visualized and interpreted (Telemetry: Sinus rhythm, occasional PVCs)
Labs: Labs Reviewed by me
[2023-05-14 15:28] VITALS: BP 107/55
[2023-05-14] MEDS: CRESTOR 20 MG PO (17:45)
[2023-05-14] MEDS: TOPROL XL 50 MG PO (17:45)
[2023-05-14 23:25] VITALS: BP 105/49
--- NOTE | 2023-05-15 05:55 | PTCARENOTE ---
Patient refused to get up for daily weight at this time. will pass to day shift.
[2023-05-15 07:00] VITALS: BP 118/58
[2023-05-15] MEDS: LASIX 40 MG PO (08:13)
[2023-05-15] MEDS: PEPCID 40 MG PO (08:13)
[2023-05-15] MEDS: KCL 40 MEQ PO (08:13)
[2023-05-15] MEDS: VITAMIN C 250 MG PO (08:13)
[2023-05-15] MEDS: MYRBETRIQ EXTENDED RELEASE 50 MG PO (08:15)
[2023-05-15] MEDS: OCEAN, SALINE MIST 1 SPRAYS NASAL (08:16)
--- NOTE | 2023-05-15 08:41 | W.PN.CD ---
Today's Communication / Plan
-
now on Lasix 40mg PO
continued tx of anemia per primary team
follow up renal profile within 7 days of discharge
Impression / Plan
-
Impression: 87-year-old male with dyspnea concerning for HFrEF
Plan
Acute HFrEF (40-45%):
-updated echo -> EF 40-45%, TAVR OK, PASP 60
- transitiontoe PO
Pleural effusion:
-Stable status-post thoracentesis.
NSVT:
-Telemetry remains remains stable.
-Continue Toprol-XL 50 mg daily.
CAD:
-hx stenting most recent 04/2021 per daughter. Cath in summer 2022, but no intervention Records requested.
-not on ASA due to thrombocytopenia. Continue statin and BB.
-trop is fine.
Bifascicular block:
-new from last EKG 2019, but had a recent TAVR.
-denies any dizziness
-Telemetry stable.
hx Bio AVR:
-2013. Then TAVR 04/2021 . Records requested.
HTN:
-Now controlled.
Subjective:
No major events overnight. Continues to improve with diuresis.
Data
TTE 05/11/2023:
Left ventricular ejection fraction is approximately 40-45%. Mild global hypokinesis with severe inferolateral wall hypokinesis/akinesis.
Mild to moderate mitral regurgitation.
Status-post TAVR in previous bioprosthetic aortic valve replacement; peak/mean�gradients of 33/17 mmHg.� Trace aortic regurgitation.
Mild to moderate tricuspid regurgitation. Estimated pulmonary artery pressure of 55-60 mmHg.�Right and left pleural effusion present.
�
Physical Exam
Vital Signs/Labs
Vital Signs
Temp Pulse Resp BP Pulse Ox
97.8 F 75 16 118/58 99
05/14/23 23:25 05/15/23 08:13 05/14/23 23:25 05/15/23 08:13 05/14/23 23:25
05/14/23 05/15/23 05/16/23
06:59 06:59 06:59
Actual Weight 76.856 kg
05/14/23 06:35
05/14/23 06:35
PT 16.9 Sec (11.4-14.6) H 05/11/23 06:28
INR 1.37 05/11/23 06:28
Magnesium 2.1 mg/dl (1.6-2.3) 05/11/23 06:28
Triglycerides 89 mg/dl (10-149) 05/11/23 06:28
LDL Cholesterol, Calc 44 mg/dl 05/11/23 06:28
VLDL Cholesterol, Calc 17 mg/dl (0-30) 05/11/23 06:28
HDL Cholesterol 22 mg/dl 05/11/23 06:28
05/10/23
16:39
[id number] Pept [id number]
Physical Exam
Constitutional: No acute distress
Cardiovascular: Rhythm & rate is regular
Respiratory: Respiratory effort normal
GI: Soft
Neuro/Psych: Alert
Data Reviewed
-
Date of Service: May 15, 2023
Medical Decision Making: Reviewed Test Results
Labs: Labs Reviewed by me
--- NOTE | 2023-05-15 09:28 | W.PN.HOSP.TC ---
Addendum entered and electronically signed by Kevin Lanier MD 05/15/23 14:07:
Pt's daughter, Danette Herndon, updated over the phone.
Addendum entered and electronically signed by Kevin Lanier MD 05/15/23 14:03:
Patient unable to use walker the distance required for meals and to reach room, due to CHF with mildly reduced ejection fraction mild dysplastic syndrome. Physician discussed ability to complete MRADLs effectively and patient now willing to use
wheelchair. Patient needs wheelchair to accomplish activities of daily living.
Addendum entered and electronically signed by Kevin Lanier MD 05/15/23 11:37:
Total time spent on d/c = 35 min. This included today's physical exam, progress note, review of laboratory and diagnostic data, preparation of discharge documents and prescriptions, and discussions about the pt's hospital course and discharge plan
with the patient and other medical lead involved in the patient's care.
Original Note:
Today's Communication/Plan
-
d/c today pending AM labs.
Assessment / Plan
Assessment / Plan
87-year-old male past medical history of CAD, Valvular Heart Disease, A-Fib and MDS who presented with increasing shortness of breath.� Patient has been having increasing lower extremity edema and hands were also swollen.� Patient developed
increased dyspnea on exertion over the last 2 days.� With associated orthopnea as well as intermittent chest discomfort.� He denied fevers, sweats or chills.
Impression:
Acute CHF mildly reduced EF.
Right pleural effusion, large.
Hypokalemia
NSVT
Conditions prior to admission
CAD.
Bifascicular block
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
Essential hypertension.
MDS/smoldering myeloma with chronic pancytopenia.
Plan:
Acute MFmrEF:
-with right pleural effusion s/p thoracentesis on 05/11/23 for 2L transudate
-was on 2L, now weaned to RA
-Repeat echocardiogram 05/11 LVEF 40-45% and large RV, severe by lateral atrial dilation. Status post TAVR, status post bioprosthetic MVR. Pulmonary hypertension with PAP 55-60 mmHg.
-was on IV lasix, now transitioned to PO lasix
-cont BB
Hypokalemia, resolved
NSVT, 9 beats: Echocardiogram as above. Continue beta-kamari.
CAD: cont BB/statin. Not on ASA due to anemia.
MDS with chronic pancytopenia: Procrit weekly (administered on 05/11). Hematology/oncology consultation with consideration of Neupogen and Nplate.
DNR
SCDs (but with plts 30 remove SCDs if any bruising)
Medically stable for discharge. Case management aware.
Anticipated Discharge: Today
Subjective/Interval History
-
Date of Service: May 15, 2023
Denies CP/SOB. c/o upper airway congestion.
Objective Data
-
Vital Signs:
Vital Signs
Temp Pulse Resp BP Pulse Ox
97.9 F 75 16 118/58 96
05/15/23 07:00 05/15/23 08:13 05/15/23 07:00 05/15/23 08:13 05/15/23 07:00
I&O
05/14/23 05/15/23 05/16/23
06:59 06:59 06:59
Intake Total 1140 / 1140 730 / 730
Output Total 2750 / 2750 1450 / 1450
Balance -1610 / -1610 -720 / -720
--- NOTE | 2023-05-15 09:49 | CM ---
Addendum entered by Princess Silva 05/15/23 10:07:
physician notified of family request for VN.
Addendum entered by Princess Silva 05/15/23 09:54:
Daughter called back to request PT/OT from [facility]. CM will request physician to do consult.
Original Note:
Physician texted CM that patient was for discharge, CM spoke with daughter who plans to transport patient and does not feel that patient needs VN supports. Patient daughter indicated that patient could sign IMM and CM will provide to patient.
Nursing updated and CM will continue to follow for discharge planning needs.
Plan; return to Personal care with no VN per daughter. daughter to transport
[2023-05-15 10:00] VITALS: BMI 23.1
[2023-05-15 10:15] LABS: Hematocrit 24.8 % (39.0-52.0); Hemoglobin 7.8 g/dL (13.0-18.0); Mean Corp Hgb Conc. 31.5 g/dL (33.0-37.0); Mean Corpuscular Hgb 30.6 pg (27.0-31.0); Mean Corpuscular Volume 97.3 fL (80.0-94.0); Red Blood Cell Count 2.55 10^6/uL (4.70-6.10)
[2023-05-15 10:27] LABS: White Blood Cell Count 1.3 10^3/uL (4.8-10.8)
[2023-05-15 10:56] LABS: Blood Urea Nitrogen 37 mg/dl (9-20); Calcium 8.6 mg/dl (8.4-10.2); Carbon Dioxide 27 mmol/L (22-30); Chloride 104 mmol/L (98-107); Estimated Creatinine Clearance 58 ml/min; Glucose 142 mg/dl (70-99); Potassium 4.5 mmol/L (3.5-5.1); Sodium 135 mmol/L (135-145); eGFR > 60.00
--- NOTE | 2023-05-15 10:57 | W.PN.ONC ---
Today's Communication / Plan
-
Neutropenic precautions
CBC w/ diff daily
Transfuse as needed to maintain Hgb >7.5 and PLT >15
Supportive care
Weekly regimen with [place] as follows:
1.�Nplate�10�mg/kg�weekly
2.�Aranesp�300�mcg�weekly
3.�Zarxio�480�mcg�weekly
4.�Transfusions�when�necessary
Last doses administered: 05/04/23
Patient is scheduled 05/18/23 @ 10:30am for follow up and weekly injections. Office notified of pending discharge.
Impression
Impression
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
Smoldering�multiple�myeloma
Chronic pancytopenia
Bilateral pleural effusions R>L s/p thoracentesis
Subjective/Objective
Subjective/Objective
Patient is eager for dc. he endorses productive cough with green sputum. he states his breathing has been easier s/p thoracentesis.
Vital Signs:
Vital Signs
Temp Pulse Resp BP Pulse Ox
97.9 F 75 16 118/58 96
05/15/23 07:00 05/15/23 08:13 05/15/23 07:00 05/15/23 08:13 05/15/23 07:00
physical exam unchanged
Lab Results:
Laboratory Data
WBC 1.3 10^3/uL (4.8-10.8) L* 05/15/23 10:04
Hgb 7.8 g/dL (13.0-18.0) L 05/15/23 10:04
Plt Count 30 10^3/uL (130-400) L 05/14/23 06:35
PT 16.9 Sec (11.4-14.6) H 05/11/23 06:28
INR 1.37 05/11/23 06:28
eGFR > 60.00 05/15/23 10:04
[2023-05-15 11:00] VITALS: BP 131/61
[2023-05-15 11:00] LABS: Platelet Count 30 10^3/uL (130-400)
[2023-05-15 11:15] VITALS: PULSE 80; O2SAT 98
--- NOTE | 2023-05-15 11:37 | W.DCSUMMARY ---
Discharge Summary
Discharge Data
Date of Admission: 05/10/23
Date of Discharge: 05/15/23
-
Pending Results: No
Hospital Course
Primary diagnoses:
Acute heart failure with mildly reduced ejection fraction
Large right pleural effusion status post 2 liter transudative thoracentesis
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
Secondary diagnoses:
Hypokalemia
Coronary artery disease
Bifascicular block
History of bioprosthetic aortic valve replacement
Nonsustained ventricular tachycardia
Essential hypertension
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
Consultants:
Oncology
Cardiology
Imaging:
CXR: Large right and small left pleural effusions.
TTE 05/11/2023:
Left ventricular ejection fraction is approximately 40-45%. Mild global hypokinesis with severe inferolateral wall hypokinesis/akinesis.
Mild to moderate mitral regurgitation.
Status-post TAVR in previous bioprosthetic aortic valve replacement; peak/mean�gradients of 33/17 mmHg.� Trace aortic regurgitation.
Mild to moderate tricuspid regurgitation. Estimated pulmonary artery pressure of 55-60 mmHg.�Right and left pleural effusion present.
Hospital course: 87-year-old male with past medical history of CAD, Valvular Heart Disease, A-Fib and MDS who presented with increasing shortness of breath.�The patient had been having increasing lower extremity edema and hands were also swollen.�
Patient developed increased dyspnea on exertion over the 2 days prior to admission.� Patient was placed on 2 L nasal cannula oxygen on admission but was then weaned to room air. proBNP was 21,300. He also had associated orthopnea as well as
intermittent chest discomfort.� Chest x-ray showed large right and small left pleural effusions. Patient underwent left thoracentesis with 2L of transudative fluid. Patient was diuresed with IV Lasix and his weight dropped about 17 kg. He was
transitioned to oral Lasix and discharged in medically stable condition.
Discharge Plan
-
Patient Disposition: Home with Home Care
Discharge Diagnosis/Procedures: Acute heart failure with mildly reduced ejection fraction, large right pleural effusion status post thoracentesis, myelodysplastic syndrome/smoldering myeloma with chronic pancytopenia
Condition: Good
Diet: Other diet
Additional Diets: Heart healthy, fluid restrict to 1400cc/day
Activity: As tolerated
Driving Restrictions: As prior to admission
Blood Work: BMP and CBC in one week.
Other Services: VN
Specialty Instructions: Weigh Daily- Call MD for wt gain/loss 3 lbs overnight/5 lbs in 1 week
Instructions: *CBC Heart Failure Instructions
Referrals:
Bianca Mai, [Family Provider] - in less than 1 week
Mark Delgado MD [Active] - 05/23/23 9:20 am
Rod Blank MD [Active] - 05/18/23 10:30 am
Prescriptions:
New
furosemide 40 mg Tablet
40 mg PO DAILY Qty: 30 0RF
metoprolol succinate 50 mg Tablet Extended Release 24 Hr
50 mg PO QPM Qty: 30 0RF
potassium chloride 20 mEq tablet extended release
40 meq PO BID Qty: 120 0RF
Continued
rosuvastatin 20 MG tablet
20 mg PO QPM
polyethylene glycol 3350 [Miralax] 17 gram Powder In Packet
17 g PO DAILYPRN PRN (Reason: constipation)
famotidine 40 mg Tablet
40 mg PO DAILY
oxycodone-acetaminophen 5-325 mg Tablet
1 tab PO Q8HPRN PRN (Reason: severe pain)
Procrit 40,000 unit/mL Solution
40,000 unit SC TH
ascorbic acid (vitamin C) [Vitamin C] 250 mg Tablet
250 mg PO DAILY
Hold Instructions: Resume on 03/29/23.
Myrbetriq 50 mg Tablet Extended Release 24 Hr
50 mg PO DAILY
acetaminophen 325 mg Tablet
650 mg PO Q4HPRN PRN (Reason: mild pain/JACOME/temp> 100.4F) Qty: 60 0RF
Critic-Aid Clear AF(miconazol) 2 % Ointment
1 applic TOPICAL BID
Balmex Adult Care 11.3 % Cream
1 applic TOPICAL BID
Discontinued
furosemide 20 mg Tablet
20 mg PO DAILY
metoprolol tartrate 50 MG tablet
25 mg PO BID
Discharge Orders:
Discharge Patient (As Directed); Ordered 05/15/23
Ordered By: Kevin Lanier
== END 2023-05-15 17:43 | disposition home health service (06) | DRG 291 ==
LOC: 3 WEST ACU 22:52
PROVIDERS: Emergency Medicine; Internal Medicine; Nurse Practitioner Family; Physician Assistant Medical; Radiology Vascular & Interventional Radiology; ADMITTING PHYSICIAN Hospitalist; ATTENDING PHYSICIAN Internal Medicine; CONSULT PHYSICIAN Internal Medicine; CONSULT PHYSICIAN Internal Medicine Hematology & Oncology; EMERGENCY PHYSICIAN Emergency Medicine; FAMILY PHYSICIAN Hospitalist
PROC: 0W993ZZ Drainage of Right Pleural Cavity, Percutaneous Approach (ICD-10-PCS; 2023-05-11)
DX: I11.0 Hypertensive heart disease with heart failure (principal); I50.43 Acute on chronic combined systolic (congestive) and diastolic (congestive) heart failure; D61.818 Other pancytopenia; J90 Pleural effusion, not elsewhere classified; I45.2 Bifascicular block; I47.20 Ventricular tachycardia, unspecified; E87.6 Hypokalemia; I25.10 Atherosclerotic heart disease of native coronary artery without angina pectoris; D47.2 Monoclonal gammopathy; I08.1 Rheumatic disorders of both mitral and tricuspid valves; D46.9 Myelodysplastic syndrome, unspecified; Z66 Do not resuscitate; I48.0 Paroxysmal atrial fibrillation; Z95.3 Presence of xenogenic heart valve
CPT/HCPCS: 88305; 32555; 36415; 71045; 71046; 80048; 80053; 80061; 82150; 82248; 82945; 83615; 83735; 83880; 83986; 84157; 84478; 84484; 85025; 85027; 85610; 86850; 86900; 86901; 87015; 87070; 87205; 88112; 89051; 93005; 93306; 96374; 97116; 97162; 97166; 97530; 99285; Q5106

== ENCOUNTER → 2023-05-22 10:43 | Outpatient (REF) | payer MEDICARE, SELFPAY ==
[2023-05-22 11:13] LABS: Hematocrit 25.5 % (39.0-52.0); Hemoglobin 7.6 g/dL (13.0-18.0); Mean Corp Hgb Conc. 29.8 g/dL (33.0-37.0); Mean Corpuscular Hgb 31.3 pg (27.0-31.0); Mean Corpuscular Volume 104.9 fL (80.0-94.0); Platelet Count 37 10^3/uL (130-400); Red Blood Cell Count 2.43 10^6/uL (4.70-6.10)
[2023-05-22 15:07] LABS: Absolute Neutrophils -Man Diff 1.4 10^3/uL (1.4-6.5); Band Neutrophils 3 % (0-3); Lymphocytes 33 % (20-51); Monocytes 16 % (2-9); Segmented Neutrophils 44 % (42-75)
[2023-05-22 15:08] LABS: Atypical Lymphocytes 3 %; Metamyelocytes 1 % (-); Normal RBC Morphology No; Nucleated Red Blood Cells 1 (-); Platelets Checked YES
[2023-05-22 15:09] LABS: Microcytosis FEW
[2023-05-22 15:10] LABS: Tear Drop Red Blood Cells FEW; Total Cells Counted 100
== END ==
LOC: REG 10:43
PROVIDERS: ATTENDING PHYSICIAN Internal Medicine Hematology & Oncology; FAMILY PHYSICIAN Hospitalist
DX: D61.818 Other pancytopenia (principal); D46.A Refractory cytopenia with multilineage dysplasia
CPT/HCPCS: 36415; 85025

== ENCOUNTER → 2023-05-29 09:36 | Outpatient (REF) | payer MEDICARE, SELFPAY ==
[2023-05-29 10:26] LABS: Hemoglobin 8.5 g/dL (13.0-18.0); Mean Corp Hgb Conc. 31.5 g/dL (33.0-37.0); Mean Corpuscular Hgb 32.2 pg (27.0-31.0); Mean Corpuscular Volume 102.3 fL (80.0-94.0); Nucleated Red Blood Cells % 0.5 % (-); Platelet Count 30 10^3/uL (130-400); Red Blood Cell Count 2.64 10^6/uL (4.70-6.10); Red Cell Dist. Width 21.3 % (11.5-14.5); White Blood Cell Count 4.2 10^3/uL (4.8-10.8)
[2023-05-29 11:01] LABS: Absolute Neutrophils -Man Diff 1.7 10^3/uL (1.4-6.5); Atypical Lymphocytes 4 %; Band Neutrophils 1 % (0-3); Lymphocytes 33 % (20-51); Monocytes 21 % (2-9); Normal RBC Morphology No; Platelets Checked Yes; Segmented Neutrophils 41 % (42-75)
[2023-05-29 11:02] LABS: Anisocytosis 2+; Hypochromasia 1+; Ovalocytes 2+; Total Cells Counted 100
== END ==
LOC: REG 09:36
PROVIDERS: ATTENDING PHYSICIAN Internal Medicine Hematology & Oncology
DX: D61.818 Other pancytopenia (principal); D46.A Refractory cytopenia with multilineage dysplasia
CPT/HCPCS: 36415; 85025

== ENCOUNTER 2023-06-03 11:54 | Inpatient (IN) | payer MEDICARE, SELFPAY ==
[2023-06-01 18:52] VITALS: BP 148/79
[2023-06-01 19:24] LABS: % Basophils 0.4 % (0-2); % Immature Granulocytes 1.9 % (0-0.5); % Lymphocytes 5.5 % (20.5-51.1); % Monocytes 9.5 % (1.7-9.3); % Neutrophils 82.7 % (42.2-75.2); Absolute Basophils 0.1 10^3/uL (0-0.2); Absolute Immature Granulocytes 0.3 10^3/uL (0-0.05); Absolute Lymphocytes 0.9 10^3/uL (1.2-3.4); Absolute Monocytes 1.5 10^3/uL (0.1-0.6); Absolute Neutrophils 13.2 10^3/uL (1.4-6.5); Hematocrit 25.2 % (39.0-52.0); Hemoglobin 8.1 g/dL (13.0-18.0); Mean Corp Hgb Conc. 32.1 g/dL (33.0-37.0); Mean Corpuscular Hgb 31.6 pg (27.0-31.0); Mean Corpuscular Volume 98.4 fL (80.0-94.0); Nucleated Red Blood Cells % 0.3 % (-); Platelet Count 33 10^3/uL (130-400); Red Blood Cell Count 2.56 10^6/uL (4.70-6.10); Red Cell Dist. Width 21.2 % (11.5-14.5)
[2023-06-01 19:40] LABS: ALT (SGPT) 12 U/L (0-50); AST (SGOT) 28 U/L (17-59); Albumin 3.9 g/dl (3.5-5.0); Alkaline Phosphatase 62 U/L (38-126); Blood Urea Nitrogen 35 mg/dl (9-20); Calcium 9.5 mg/dl (8.4-10.2); Carbon Dioxide 25 mmol/L (22-30); Chloride 101 mmol/L (98-107); Glucose 137 mg/dl (70-99); Potassium 4.4 mmol/L (3.5-5.1); Sodium 138 mmol/L (135-145); Total Bilirubin 1.3 mg/dl (0.2-1.3); Total Protein 6.7 g/dl (6.3-8.2)
[2023-06-01 19:47] LABS: NT-proBNP 7450 pg/ml; Troponin I 0.018 ng/ml
[2023-06-01 21:13] VITALS: BP 131/62
--- NOTE | 2023-06-01 21:41 | ED.GENMED ---
History of Present Illness
General
Chief Complaint: Chest Pain
Source: patient
Exam Limitations: none
Time Seen by Provider: 06/01/23 21:27
Nursing documentation reviewed up to this point in time: agreed with
Travel History
Have you had any contact with someone who has COVID-19?: No
Do you have any symptoms of coronavirus? Fever > 100 degrees, chills, cough, shortness of breath, sore throat, loss of taste or smell, muscle aches, or headache?: No
History of Present Illness
History of Present Illness:
87-year-old male presents emergency department complaining of chest tightness that began around 1 PM and lasted several hours and then went away. It then returned this evening. He states his chest feels funny. He has a history of coronary artery
disease, aortic valve replacement and myelodysplasia.
Past History
Past History
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
ED Past Surgical History: Cardiac
Social History
Tobacco: Non-smoker
Alcohol: None
Drug: None
Personal:
Living: with family
Employment: Other
Family History
Family History: Other
Phy Exam
Physical Exam
Physical Exam:
Physical Exam
General: no apparent distress, not acutely ill
Neck: supple. no meningeal signs. normal posterior pharynx
Heart: s1/s2 regular rate and rhythm, no murmur. equal radial
pulses. Midline sternotomy scar
HEENT: Pupils equal round reactive to light, EOMI
Lungs: no acute respiratory distress. clear bilaterally
Abdomen: normal bowel sounds. not tender. no CVAT
Neuro: alert and oriented. no focal neurological deficits cranial nerves II through XII intact
Skin: no rash
Psychiatric: well kept. interactive and cooperative
Extremities: no edema. no calf tenderness. negative homans. good distal pulses
Scores
Heart Score for Chest Pain Patients
STEMI patient?: No
History: Moderately Suspicious
ECG: Nonspecific Repolarization
Age: >/= 65 years
Risk Factors: >/= 3 Risk Factors or History of CAD
Troponin: </= Normal Limit
Heart Score for Chest Pain Patients: 6
Heart Score Risk: 20.3% MACE over next 6 weeks
Course
Orders/Labs/Results
Orders:
Orders
06/01/23 18:49
Electrocardiogram (*1) Urgent
Reason for Study: Chest Pain
EKG- Treatment ONCE
06/01/23 19:17
BNP [NT-proBNP] Urgent
Complete Blood Count/With Diff Urgent
Comprehensive Metabolic Panel Urgent
Troponin I Urgent
06/01/23 21:36
CR Chest - 2 Views Urgent
Comment:
Reason For Exam: chest tightness this afternoon
06/01/23 22:19
Troponin I Urgent
06/01/23 23:10
Admit/Transfer Patient As Directed
Co-Sign Provider:
Level of Care: Observation services
Assign to:: Telemetry
Physician / Group: elias pratt
Diagnosis: cp ,chronic pancyotpenia
Reason for Telemetry: Chest Pain syndromes
Date to Stop Telemetry: 06/03/23
Time to Stop Telemetry: 11:00
Reason for Hospitalization: cp concern for poss cad,chronic pancyotpenia
Expected length of stay greater than two midnights?: Yes
ELOS- Estimated Length of Stay in days: 3
I certify the patient meets the requirements for IP care: Yes
Code Status As Directed
Resuscitation Status: Do not resuscitate
Reached after discussion with pt or family/Healthcare POA: Yes
Based on pt advanced directive or healthcare POA form: Yes
Decision communicated with: per pt with son present
CARDIOLOGY CONSULT Routine
Consulting Provider: Kirk Cortez
Was physician already notified: No
Reason for consult: midsternal cp, recent chf pleural effusion
Consult Notification Routine
Specialty to Notify: Cardiology
06/01/23 23:11
DNR Bracelet Application ONCE
06/01/23 23:13
ECG [Electrocardiogram (*1)] Urgent
Reason for Study: Chest Pain
EKG- Treatment ONCE
06/02/23 00:48
Acetaminophen [Tylenol] 650 mg PO Q4HPRN PRN
Oxycodone/Acetaminophen [Percocet 5/325] 1 tablet PO Q8HPRN PRN
Polyethylene Glycol Powder [Miralax] 17 grams PO DAILYPRN PRN
06/02/23 00:48
Activity As Directed
Activity Level: As Tolerated
Intake/ Output As Directed
Frequency: Per unit guidelines
Pneumatic Compression Sleeves As Directed
Type: Knee high
Vital Signs As Directed
Frequency: Per unit guidelines
Weight As Directed
Frequency: Daily
Pulse Ox/spot Check [RESP] Routine
Quantity: 1
Ot Eval And Treat Routine
Pt Eval And Treat Routine
Activity Level: As Tolerated
DX Deep Vein Thrombosis Video Routine
06/02/23 04:30
Troponin I Q6H
06/02/23 06:00
Cardiovascular Evaluation IN AM
Complete Blood Count/With Diff IN AM
Comprehensive Metabolic Panel IN AM
06/02/23 08:00
Ascorbic Acid [Vitamin C] 250 mg PO DAILY
Balmex [Balmex Cream] 1 applic TOPICAL BID
Famotidine [Pepcid] 20 mg PO DAILY
Furosemide [Lasix] 40 mg PO DAILY
Loratadine [Claritin] 10 mg PO DAILY
Tolterodine Extended Release [Detrol LA] 4 mg PO DAILY
06/02/23 10:30
Troponin I Q6H
06/02/23 Dinner
Cholesterol Lowering
Cholesterol Lowering: Sodium, 2 Gram
06/02/23 16:30
Troponin I Q6H
06/02/23 18:00
Metoprolol Xl [Toprol Xl] 50 mg PO QPM
Rosuvastatin Calcium [Crestor] 20 mg PO QPM
06/03/23 06:00
Complete Blood Count/With Diff IN AM
Comprehensive Metabolic Panel IN AM
06/03/23 11:00
DC Protocol for Telemetry ONCE
06/04/23 06:00
Complete Blood Count/With Diff IN AM
Comprehensive Metabolic Panel IN AM
Abnormal Lab Results
06/01/23
19:17
WBC 16.0 H 10^3/uL
(4.8-10.8)
RBC 2.56 L 10^6/uL
(4.70-6.10)
Hgb 8.1 L g/dL
(13.0-18.0)
Hct 25.2 L %
(39.0-52.0)
MCV 98.4 H fL
(80.0-94.0)
MCH 31.6 H pg
(27.0-31.0)
MCHC 32.1 L g/dL
(33.0-37.0)
RDW 21.2 H %
(11.5-14.5)
Plt Count 33 L 10^3/uL
(130-400)
Abs Immat Gran (auto) 0.3 H 10^3/uL
(0-0.05)
Absolute Neuts (auto) 13.2 H 10^3/uL
(1.4-6.5)
Absolute Lymphs (auto) 0.9 L 10^3/uL
(1.2-3.4)
Absolute Monos (auto) 1.5 H 10^3/uL
(0.1-0.6)
Immature Gran % 1.9 H %
(0-0.5)
Neutrophils % 82.7 H %
(42.2-75.2)
Lymphocytes % 5.5 L %
(20.5-51.1)
Monocytes % 9.5 H %
(1.7-9.3)
BUN 35 H mg/dl
(9-20)
Glucose 137 H mg/dl
(70-99)
06/01/23 19:17
06/01/23 19:17
Vital Signs
Initial and Last Documented VS:
Initial Vital Signs
Temp Pulse Resp BP Pulse Ox
97.6 F 96 18 148/79 98
06/01/23 18:52 06/01/23 18:52 06/01/23 18:52 06/01/23 18:52 06/01/23 18:52
Last Documented Vital Signs
Temp Pulse Resp BP Pulse Ox
98.7 F 92 18 131/74 95
06/02/23 00:35 06/02/23 00:35 06/02/23 00:35 06/02/23 00:35 06/02/23 00:35
MDM/Problems Addressed
Differential Diagnosis Includes:
ACS, CHF
MDM/Problems Addressed:
87-year-old male with mild dysplasia, chest pain concerning for ACS, CHF, pleural effusion, thrombocytopenia. Admit to hospitalist.
Chronic conditions affecting care: CAD, Cardiomyopathy, Arrhythmia and Cancer (myelodysplasia)
Acute Exacerbation and/or Progression of Chronic Illness: CAD, Cardiomyopathy, Arrhythmia and Cancer (Myelodysplasia)
*Radiology
Radiology exam reviewed: preliminary read by ED provider (Chest x-ray right pleural effusion)
*Pulse Oximetry
Patient hypoxic: no
*EKG
Interpreted by ED Provider?: Yes
EKG Intrepretation Date: 06/02/23
EKG Intrepretation Time: 18:53
Interpretation: abnormal
Comparison EKG: changes noted
Heart Rate: 98
Rate: normal
Rhythm: sinus
[place]: normal axis
Interval: normal interval
QRS Pattern: right bundle branch block
Ischemia: no ischemia
*Student Activities Director Interpretation
Rate: normal
Interpretation: normal
Heart Rate: 97
Rhythm: sinus
*Critical Care Note
Total Time (30-74mins, 75-104mins- exclusive of procedures): Not Applicable
Data Reviewed
Review of Other/Old Records Reveals: Progress Notes
Patient Management
Social determinants of health affecting care: Living situation and Strong social support
Discussion with other providers: Hospitalist and Finish Off Operator (cardiology dr. Cortez)
Escalation/DeEscalation of care consider admission/obs:
admit indicated
ED Attending Note
-
Portions of this chart may have been created with voice recognition software.� Occasional wrong word or��sound alike� substitutions may have occurred due to the inherent limitations of voice recognition software.
Discharge Plan
Departure
Patient Disposition: Admit
Date of Disposition: 06/01/23
Time of Disposition: 22:12
Admit to: Telemetry
Presentation/result/management discussed w/ accepting MD/DO: Hospitalist
Patient with high blood pressure during this ER visit?: Yes
Condition: Fair
Discharge Problem:
Chest pain, Pleural effusion on right, CHF (congestive heart failure)
Interventions
Interventions:
*Risk Screen - Suicide Last Done: 06/02/23 00:14
*General Assessment Last Done: 06/01/23 18:52
*Neglect/Abuse Screening Last Done: 06/01/23 18:52
ED- Fall Risk Assessment Last Done: 06/01/23 21:17
*ED COVID-19 Vaccine History Last Done: 06/02/23 00:14
*Nursing Disposition Last Done: 06/02/23 00:17
ED- Cardiac Assessment Last Done: 06/01/23 21:16
Discharge Date and Time
Discharge Date/Time: 06/02/23 00:18
[2023-06-01 22:07] VITALS: BP 111/51
--- NOTE | 2023-06-01 22:40 | HPS.HSE ---
Addendum entered and electronically signed by Jurgen Carlos DO 06/01/23 23:44:
Patient seen and examined independently. Agree with findings and plan as set forth by [place] Bueno.
Patient is an 87y M with PMH significant for A-Fib, HTN and CHF with recent hospitalization who presents to ED for evaluation of chest pain. Patient states that he was on the phone with his son this evening and he became upset. Shortly
thereafter he developed burning discomfort in his epigastric region / lower chest. He had 'gas' and belched without much relief. He took Pepcid also without much relief. His symptoms persisted and patient presented to the ED for further
evaluation.
In the ED, his discomfort initially began to resolve; however, he states that it has since started to increase once again. He notes some radiation to the L jaw.
Patient denies any associated palpitations, SOB, diaphoresis or nausea.
Patient is s/p injections of Nplate, Aranesp and Zarxio today for his MDS.
Ass:
Chest Pain
Chronic HFpEF
Right Pleural Effusion
ASCVD
Paroxysmal Atrial Fibrillation
Valvular Heart Disease
Benign Hypertension
MDS / Smoldering Myeloma / Leukocytosis
Plan:
Observe overnight for further evaluation and treatment.
Follow for changes in symptoms. Trial of GI cocktail now and follow for results.
Continue to follow troponin to peak.
Cardio evaluation.
Hold on ASA, etc for now given thrombocytopenia.
Continue usual outpatient medications.
Continue daily Lasix and follow I/Os, weights, etc.
Follow cell counts (suspect WBC elevation is secondary to Zarxio).
Original Note:
Family Physician
-
Family Physician: Bianca Mai DO
Chief Complaint
-
Chest pain
History of Present Illness
87-year-old male complaining of chest tightness that began around 4 PM after an argument with his brother. His daughter came over and went to dinner with him with the pain still persisted as he was still agitated. She noted that his heart rate was
117. Upon arrival to the ER his chest pain diminished. He still reports a sensation of indigestion with burping in the midsternal area he took Pepcid with not much relief. He was seen by his logistics supply officer yesterday for routine follow-up for recent
CHF and pleural effusion with thoracentesis. He had injections of Nplate�10�mg/kg�,Aranesp�300�mcg, and�Zarxio�480�mcg�weekly on today 06/01/2023 administration today by oncology for his MDS/smoldering myeloma with chronic pancytopenia, he
denies headache, fever, chills, sore throat, cough, abdominal pain, nausea, vomiting, diarrhea, urinary symptoms, sick contacts.
Other PMH includes large right pleural effusion status post 2 L transudative thoracentesis acute heart failure, CAD, bifascicular block, history of bioprosthetic aortic valve replacement, nonsustained VT, essential HTN, hypokalemia, former smoker.
Medical History
Past Medical History
Past Medical History: Reports Other
Additional Past Medical History:
Right pleural effusion with 2 L fluid removal 05/11/2023
Coronary Artery Disease s/p Stent
Chronic HFpEF
Paroxysmal Atrial Fibrillation
Valvular Heart Disease
Essential Hypertension
Hyperlipidemia
Myelodysplastic Syndrome / Smoldering Multiple Myeloma
BPH
Past Surgical History: Reports Other
Additional Past Surgical History:
Bioprosthetic Aortic Valve Replacement x 2
Right Carotid Endarterectomy
Appendectomy
Hernia Repair
Social History
Tobacco: Former Smoker
Living: Assisted Living
Employment: Retired
Family History
Family History: CAD (Mother age 92) and Other (Father related to smoking)
Allergies / Home Medications
Allergies reflects when Allergies were last updated in [employer].
Home Medications with original date entered in [employer]
Allergy/Medication List:
Allergies
Allergy/AdvReac Type Severity Reaction Status Date / Time
Penicillins Allergy Mild Rash Verified 06/01/23 18:51
Home Medications
rosuvastatin 20 mg tablet 20 mg PO QPM High Cholesterol 07/17/13
ascorbic acid (vitamin C) 250 mg tablet (Vitamin C) 250 mg PO DAILY Supplement 03/01/23
epoetin isatu 40,000 unit/mL injection solution (Procrit) 40,000 unit SC TH low RBC 03/01/23
famotidine 40 mg tablet 40 mg PO DAILY Gastrointestinal Issue 03/01/23
mirabegron 50 mg tablet,extended release 24 hr (Myrbetriq) 50 mg PO DAILY Urinary Issue 03/01/23
oxycodone-acetaminophen 5 mg-325 mg tablet 1 tab PO Q8HPRN PRN severe pain 03/01/23
polyethylene glycol 3350 17 gram oral powder packet (Miralax) 17 g PO DAILYPRN PRN constipation 03/01/23
acetaminophen 325 mg tablet 650 mg PO Q4HPRN PRN mild pain/JACOME/temp> 100.4F #60 tabs 03/13/23
miconazole nitrate 2 % topical ointment (Critic-Aid Clear AF (miconazole)) 1 applic topical BID skin rash 05/10/23
zinc oxide-vitamin B5-vit E 11.3% topical cream (Balmex Adult Care) 1 applic topical BID sacrum and scrotum 05/10/23
furosemide 40 mg tablet 40 mg PO DAILY #30 tabs 05/15/23
metoprolol succinate 50 mg tablet,extended release 24 hr 50 mg PO QPM #30 tabs 05/15/23
potassium chloride 20 mEq tablet,extended release 40 meq PO BID #120 tabs 05/15/23
loratadine 10 mg tablet 10 mg PO DAILY 06/01/23
Review of Systems
-
History Source: Patient and Family (Daughter at bedside)
A 12 point ROS was completed and negative except as noted: Yes
Constitutional: Denies Fever or Chills
EENT: Denies Sore Throat or Runny Nose
Respiratory: Denies Cough or Trouble Breathing
Cardiac: Reports Chest Pain (Midsternal with indigestion); Denies Diaphoresis, Palpitations or Syncope
Abdomen/GI: Denies Abdominal Pain, Nausea, Vomiting, Diarrhea, Constipated, Bloody Stools or Black Stools
: Denies Dysuria, Frequency, Flank Pain, Incontinence, Difficulty Voiding or Urgency
Musculoskeletal: Reports Edema (Chronic +2 nonpitting feet to knees); Denies Joint Pain
Skin: Denies Itching or Rash
Neurological: Denies Dizzy, Headache or Weakness
Endocrine: Reports No Symptoms
Hematologic/Lymphatic: Reports No Symptoms
Psych: Reports Calm
Physical Exam
Vital Signs
Vital Signs
Temp Pulse Resp BP Pulse Ox
97.6 F 78 19 111/51 99
06/01/23 18:52 06/01/23 22:15 06/01/23 22:15 06/01/23 22:07 06/01/23 22:15
Physical Exam
General: Comfortable and Conversant; No Pain, Fever or Chills
HEENT: NormoCephalic, Moist mucous membranes, PERRLA, [place] Conjunctivae and No Ptosis
Respiratory: Clear; No Wheezes, Rales or Rhonchi
Cardiac: S1/S2, Regular Rhythm and Peripheral Edema (Chronic +2 feet 2 knees nonpitting); No Murmur, Rub, Gallop or JVD
Breast: Deferred by me
GI: Soft, Non Tender, Non Distended, Normal Bowel Sounds and No Hepatosplenomegaly
Rectal: Deferred by Provider
Musculoskeletal: No Clubbing, No Cyanosis, Edema, Left Lower Extremity (Chronic +2 feet 2 knees nonpitting) and Edema, Right Lower Extremity (Chronic +2 feet 2 knees nonpitting); No Edema, Left Upper Extremity or Edema, Right Upper Extremity
Skin: Warm and Dry; No Rash or Jaundice
Neuro: AO x 3, No Motor Deficits, Nonfocal/grossly intact, Cranial Nerves Intact and No Sensory Deficits; No Slurred Speech, Facial Droop, Tremors or Sedated
Psych: Calm
Laboratory Results
-
06/01/23 19:17
06/01/23 19:17
Laboratory Results
Total Bilirubin 1.3 mg/dl (0.2-1.3) 06/01/23 19:17
AST 28 U/L (17-59) 06/01/23 19:17
ALT 12 U/L (0-50) 06/01/23 19:17
Alkaline Phosphatase 62 U/L (38-126) 06/01/23 19:17
Troponin I 0.018 ng/ml 06/01/23 19:17
Data Reviewed
-
Diagnostic Radiology: Report Reviewed by me
Lab Data: Labs Reviewed by me
Impression/Plan
-
Impression/plan:
Obs telemetry
#Chest pain
#CAD/bifascicular block
#Bio AVR 2013 baseline TAVR 2021
-Continue beta-kamari/statin not on aspirin due to anemia
-Troponin 0.018 > 0.025 will trend 3rd
- will green grabber given symptoms of indigestion
#chronic residual RIGHT pleural effusion/chronic CHF
-Status post thoracentesis 05/11/2043 2 L
-Lasix 40 mg daily
2D echo 05/11/2023 LVEF 40-45%, large RV, severe bilateral atrial dilation.
Status post TAVR status post bioprosthetic MVR
Pulmonary HTN with PAP 55-60 mmHg
#Leukocytosis likely secondary to stimulating myelosuppressive medication
WBC 16,000-patient received- Nplate�10�mg/kg�weekly,�Aranesp�300�mcg�weekly, �Zarxio�480�mcg�weekly on today 06/01/2023 administration
-Currently afebrile nontoxic
#Paroxysmal A-fib
-Continue beta-kamari not on aspirin or AC therapy due to anemia
EKG: NSR RBBB, bifascicular block, 98 bpm, QTc 505 MS
#Hx NSVT 9 beats recent admit continue beta-kamari
#Essential HTN
-Continue metoprolol
#MDS/smoldering myeloma with chronic pancytopenia
Hgb 8.1 baseline 7.7-8, PLT 33
-Received�Nplate�10�mg/kg�weekly,�Aranesp�300�mcg�weekly, �Zarxio�480�mcg�weekly on today 06/01/2023 administration
-Follows with oncology for consideration of Neupogen and Nplat
-Follow CBC
#GERD
-Continue famotidine 40 mg daily
#HLD
Continue Crestor
#Overactive bladder
-Continue Myrbetriq 50 mg daily
DVT prophylaxis
SCDs
DNR
[2023-06-01 22:50] LABS: Troponin I 0.025 ng/ml
[2023-06-01 23:00] VITALS: BP 110/56
[2023-06-01] MEDS: MAALOX 50 PO (23:54)
[2023-06-02] VITALS (13 sets, daily range): BP systolic 92–131; BP diastolic 47–74; PULSE 78; O2SAT 99; BMI 22.1; BMI 21.7
[2023-06-02] MEDS: PERCOCET 5/325 1 TABLET PO (02:19)
--- NOTE | 2023-06-02 02:30 | PTCARENOTE ---
Patient received at 0015. Patient ambulated with standby assist from stretcher to bed . Vital signs taken BP 131/74, HR 92, respirations 18, O2 95% RA. Patient with complaints of diffuse chest pain rated 4/10. Assessment completed . Patient
oriented to room. Patient safely maintained
[2023-06-02 07:00] LABS: % Basophils 0.4 % (0-2); % Immature Granulocytes 1.2 % (0-0.5); % Lymphocytes 9.9 % (20.5-51.1); % Monocytes 8.2 % (1.7-9.3); % Neutrophils 80.3 % (42.2-75.2); Absolute Basophils 0.1 10^3/uL (0-0.2); Absolute Immature Granulocytes 0.2 10^3/uL (0-0.05); Absolute Lymphocytes 1.6 10^3/uL (1.2-3.4); Absolute Monocytes 1.3 10^3/uL (0.1-0.6); Absolute Neutrophils 12.7 10^3/uL (1.4-6.5); Hematocrit 22.4 % (39.0-52.0); Hemoglobin 7.1 g/dL (13.0-18.0); Mean Corp Hgb Conc. 31.7 g/dL (33.0-37.0); Mean Corpuscular Hgb 31.7 pg (27.0-31.0); Nucleated Red Blood Cells % 0.1 % (-); Red Blood Cell Count 2.24 10^6/uL (4.70-6.10); Red Cell Dist. Width 21.3 % (11.5-14.5); White Blood Cell Count 15.8 10^3/uL (4.8-10.8)
[2023-06-02 07:03] LABS: Platelet Count 28 10^3/uL (130-400)
[2023-06-02 07:20] LABS: Troponin I 0.039 ng/ml
[2023-06-02 07:31] LABS: ALT (SGPT) 10 U/L (0-50); AST (SGOT) 23 U/L (17-59); Albumin 3.3 g/dl (3.5-5.0); Alkaline Phosphatase 55 U/L (38-126); Blood Urea Nitrogen 34 mg/dl (9-20); Calcium 9.2 mg/dl (8.4-10.2); Carbon Dioxide 27 mmol/L (22-30); Chloride 104 mmol/L (98-107); Estimated Creatinine Clearance 48 ml/min; Glucose 84 mg/dl (70-99); HDL Cholesterol 26 mg/dl; LDL Cholesterol, Calculated 34 mg/dl; Potassium 4.3 mmol/L (3.5-5.1); Sodium 138 mmol/L (135-145); Total Cholesterol 78 mg/dl (50-199); Total Protein 6.1 g/dl (6.3-8.2); Triglyceride 90 mg/dl (10-149); Very Low Density Lipoprotein 18 mg/dl (0-30); eGFR 58.89
--- NOTE | 2023-06-02 09:20 | CON.CAR ---
Medical History
-
Chief Complaint: chest pain
History of Present Illness:
87 yo M (follows with Dr. Delgado in cardiology office- last seen 2020. He has also been following with Dr. Arnaldo [facility])with a PMH of MDS, bioprosthetic aortic valve replacement (2013) with transient postoperative atrial
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 Jackson), distant history of coronary stenting preceding aortic valve replacement, hyperlipidemia, and HTN
presents for epigastric burning 09/17 yesterday brought on by an argument with his son feeling much better at 10. He has never felt cp with any cardiac issues. He denies sob, palpitations, active bleeding, orthopnea or pnd.
Past Medical History
Past Medical History: Arrhythmias (post op af), CAD, HTN, Hypercholesterolemia and Other (thrombocytopenai, SHARIF sp CEA, MDS)
Past Surgical History: Cardiac (s/p AVR)
Social History
Tobacco: Former Smoker (many years ago when in the service)
Living: [facility])
Family History
Family History: Reviewed & Not Pertinent
Allergies / Home Medications
Allergy/AdvReac Type Severity Reaction Status Date / Time
Penicillins Allergy Mild Rash Verified 06/01/23 18:51
Medication Instructions Recorded Confirmed Type
rosuvastatin 20 mg tablet 20 mg PO QPM High Cholesterol 07/17/13 06/01/23 History
ascorbic acid (vitamin C) 250 mg 250 mg PO DAILY Supplement 03/01/23 06/01/23 History
tablet (Vitamin C)
epoetin isatu 40,000 unit/mL 40,000 unit SC TH low RBC 03/01/23 06/01/23 History
injection solution (Procrit)
famotidine 40 mg tablet 40 mg PO DAILY Gastrointestinal 03/01/23 06/01/23 History
Issue
mirabegron 50 mg tablet,extended 50 mg PO DAILY Urinary Issue 03/01/23 06/01/23 History
release 24 hr (Myrbetriq)
oxycodone-acetaminophen 5 mg-325 1 tab PO Q8HPRN PRN severe pain 03/01/23 06/01/23 History
mg tablet
polyethylene glycol 3350 17 gram 17 g PO DAILYPRN PRN constipation 03/01/23 06/01/23 History
oral powder packet (Miralax)
acetaminophen 325 mg tablet 650 mg PO Q4HPRN PRN mild 03/13/23 06/01/23 Rx
pain/JACOME/temp> 100.4F #60 tabs
miconazole nitrate 2 % topical 1 applic topical BID skin rash 05/10/23 06/01/23 History
ointment (Critic-Aid Clear AF
(miconazole))
zinc oxide-vitamin B5-vit E 11.3% 1 applic topical BID sacrum and 05/10/23 06/01/23 History
topical cream (Balmex Adult Care) scrotum
furosemide 40 mg tablet 40 mg PO DAILY #30 tabs 05/15/23 06/01/23 Rx
metoprolol succinate 50 mg 50 mg PO QPM #30 tabs 05/15/23 06/01/23 Rx
tablet,extended release 24 hr
potassium chloride 20 mEq 40 meq PO BID #120 tabs 05/15/23 06/01/23 Rx
tablet,extended release
loratadine 10 mg tablet 10 mg PO DAILY 06/01/23 06/01/23 History
Review of Systems
-
All other systems: Negative unless noted
Physical Exam
Vital Signs
Temp Pulse Resp BP Pulse Ox
98.3 F 82 16 101/55 99
06/02/23 07:55 06/02/23 07:55 06/02/23 07:55 06/02/23 07:55 06/02/23 07:55
Lab Results
06/02/23 06:46
06/02/23 06:46
Troponin I 0.039 ng/ml H* 06/02/23 06:46
Tyy-N-Yrxmblzfmsz Pept 7450 pg/ml 06/01/23 19:17
Physical Exam
General: Well Developed, Well Nourished, No Apparent Distress and Comfortable
HEENT: Normocephalic
Respiratory: Clear, Wheezes (none), Crackles (none), Rhonchi (none) and Other (decreased at the right base)
Cardiac: S1/S2, Regular Rhythm, Murmur (none), Rub (none) and Peripheral Edema (1+)
GI: Soft, Non Tender and Non Distended
Genito-urinary: Costovertebral Angle Tend
Musculoskeletal: No Clubbing and No Cyanosis
Impression / Plan
-
CP; epigatric burning started with argument, 09/17 now 06/17 abnd trop 0.03.
plt <30 and Hgb 7.1
-diff dx: anemia, angina, reflux, anxiety.
---little we can offer outside of optimizing medical managment for all issues
-would recommend transfusion with an extra dose of lasix to follow
Elevated troponin likely secondary to anemia
-can trend
CAD:
-hx stenting most recent 04/2021 per recent hospital notes. Cath in summer 2022, but no intervention�
-not on ASA due to thrombocytopenia. Continue statin and BB
Acute HFrEF (40-45%):
-updated echo -> EF 40-45%, TAVR OK, PASP 60
-chronic stable, euvolemic with slight le edema
-add tubigrips
Pleural effusion:
-Stable status-post thoracentesis.
Bifascicular block:
-stable
PVCs add bb
hx Bio AVR:
-2013. Then TAVR 04/2021 . Records requested.
�
HTN:
-Now controlled.
Subjective:
No major events overnight.� Continues to improve with diuresis.
Data
TTE 05/11/2023:
Left ventricular ejection fraction is approximately 40-45%. Mild global hypokinesis with severe inferolateral wall hypokinesis/akinesis.
Mild to moderate mitral regurgitation.
Status-post TAVR in previous bioprosthetic aortic valve replacement; peak/mean�gradients of 33/17 mmHg.� Trace aortic regurgitation.
Mild to moderate tricuspid regurgitation. Estimated pulmonary artery pressure of 55-60 mmHg.�Right and left pleural effusion present.
�
Data Reviewed
-
EKG: Tracing Personally Visualized and interpreted (NSR with bfascicular block ( RBBB and LAFB) and primary av codcutaion delay with pac and abberation )
Radiology: Report Reviewed by me (06/01/23 Small to moderate right pleural effusion. Improvement in right base parenchymal opacity, compatible with improvement in atelectasis.)
Labs: Labs Reviewed by me (trop uptrending but still quite low at 0.039, hgb 7.1, plt 28)
[2023-06-02] MEDS: BALMEX CREAM 1 APPLIC TOPICAL (09:23)
[2023-06-02] MEDS: CLARITIN 10 MG PO (09:23)
[2023-06-02] MEDS: PEPCID 20 MG PO (09:23)
[2023-06-02] MEDS: DETROL LA 4 MG PO (09:23)
[2023-06-02] MEDS: VITAMIN C 250 MG PO (09:23)
[2023-06-02] MEDS: LASIX 40 MG PO (09:23)
--- NOTE | 2023-06-02 09:34 | W.PN.HOSP.TC ---
Addendum entered and electronically signed by Michele De La Torre MD 06/02/23 15:15:
Patient seen and examined
Discussed with resident
Discussed with cardiology,
87 years old with chronic CHF reduced EF, smoldering myeloma/MDS, transfusion dependent (severe anemia and thrombocytopenia) recent hospitalization with decompensated CHF and right pleural effusion with large volume thoracentesis presented with
chest pain. Not exertion dependent. Unclear if postprandial.
Volume status compensated
Less likely acute coronary syndrome in patient with CAD and limited options for intervention given severe transfusion dependent anemia. Currently not on on any antiplatelet agent or anticoagulation.
Suspect demand ischemia with decreasing hemoglobin.
Transfuse 1 unit of PRBC.
IV Lasix posttransfusion.
Reassess pain after transfusion
Start PPI
Recent right pleural effusion status post 2 L thoracentesis 05/11 transudate. Follow-up chest x-ray with no evidence of anticoagulation
Original Note:
Today's Communication/Plan
-
Trend troponin likely due to anemia
Packed RBC
PPI
Leukocytosis, patient afebrile, monitor with temperature
Give Lasix, monitor volume status
Consider echo
Assessment / Plan
Assessment / Plan
Impression
Presentation with chest pain
Leukocytosis
Conditions prior to admission
CAD/bifascicular block
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
Chronic residual� RIGHT pleural effusion/chronic CHF
Plan
Presentation with chest pain
-Troponin trending up;0.018 > 0.025 > 0.050. Was likely due to anemia, Less likely nonischemic cardiac injury.
Other differential diagnosis include acid reflux, angina, anxiety.
-PPI
-Continue beta-kamari.
-Trend troponin.
-Hold statin.
-Hold aspirin given patient's anemia.
-Cardiac diet.
-Reassess tomorrow
Elevated troponin
-Likely due to anemia
-Packed RBC
-Trend troponin
Leukocytosis
-Patient afebrile with severely low platelet count.
-Most likely reactive.
-Continue to monitor WBC count and temperature.
CAD/bifascicular block
-Hx stenting most recent 04/2021 per�recent hospital notes.�Cath in summer 2022, but no intervention.
-Thrombocytopenia.
-Not on aspirin given pancytopenia.
-Stable bifascicular block.
Acute HFrEF
-S/p TAVR, s/p bioprosthetic MVR
-Echocardiogram with ejection fraction 40-45% 05/11/2023.
-Chronic, stable volume status, mild bilateral lower extremity edema.
-Continue IV Lasix.
-Consider Tubigrip.
Chronic right pleural effusion/chronic CHF
-Stable, s/p right thoracocentesis 05/11/2023 with 2 L removed.
-Lasix 40 mg daily
Paroxysmal A-fib
-Continue beta-kamari not on aspirin or AC therapy due to anemia.
-EKG with NSR RBBB, bifascicular block, 98 bpm, QTc 505 MS.
Hx NSVT 9 beats recent admit
-Continue beta-kamari
Essential HTN
-Stable.
-Continue metoprolol.
MDS/smoldering myeloma with chronic pancytopenia
Hgb 7.1 baseline 7.7-8, PLT 33
-Received�Nplate�10�mg/kg�weekly,�Aranesp�300�mcg�weekly, �Zarxio�480�mcg�weekly on , yesterday 06/01/2023 administration
-Follows with oncology for consideration of Neupogen and Nplat
-Follow CBC
GERD
-Continue famotidine 40 mg daily
HLD
-Continue Crestor
Overactive bladder
-Continue Myrbetriq 50 mg daily
DVT prophylaxis
-SCDs
Anticipated Discharge: Within 24 hours
Subjective/Interval History
-
Date of Service: June 02, 2023
Objective Data
-
Labs:
Laboratory Results
06/02/23
06:46
WBC 15.8 H
Hgb 7.1 L
Hct 22.4 L
Plt Count 28 L*
Sodium 138
Potassium 4.3
Chloride 104
Carbon Dioxide 27
BUN 34 H
Creatinine 1.2
Glucose 84
Calcium 9.2
Total Bilirubin 1.0
AST 23
ALT 10
Alkaline Phosphatase 55
Vital Signs:
Vital Signs
Temp Pulse Resp BP Pulse Ox
98.3 F 82 16 101/55 99
06/02/23 07:55 06/02/23 07:55 06/02/23 07:55 06/02/23 07:55 06/02/23 07:55
I&O
06/01/23 06/02/23 06/03/23
06:59 06:59 06:59
Output Total 300 / 300
Balance -300 / -300
Review of Systems
-
History Source: Patient
All other systems: Not reviewed unless documented
Constitutional: Reports No Symptoms; Denies Fever or Chills
EENT: Reports No Symptoms Reported
Respiratory: Reports No Symptoms; Denies Wheezing
Cardiac: Reports No Symptoms; Denies Chest Pain or Syncope
Abdomen/GI: Reports No Symptoms; Denies Abdominal Pain, Nausea, Vomiting, Diarrhea or Constipated
Genitourinary: Reports No Symptoms
Musculoskeletal: Reports No Symptoms
Skin: Reports No Symptoms
Neuro: Reports No Symptoms; Denies Headache or Weakness
Endocrine: Reports No Symptoms
Physical Exam
-
General: Well Developed, No Apparent Distress and Conversant
HEENT: Normocephalic and Atraumatic
Respiratory: Clear to Auscultation and Non Labored Respirations; Negative Wheezes, Rhonchi or Crackles
Cardiac: Regular Rhythm and S1/S2; Negative Murmur or Rub
GI: Soft, Nontender, Nondistended and Normal Bowel Sounds
Musculoskeletal: No Clubbing, No Cyanosis and No Edema
Skin: Warm and Dry
Neuro: Awake, Alert, Oriented and AO x 3
Psych: Calm
Data Reviewed
-
Labs: Labs Reviewed by me and Discussed with Physician
Old Records: Reviewed
--- NOTE | 2023-06-02 14:58 | CM ---
Addendum entered by Selene Forbes 06/02/23 15:27:
PCP: Bianca Mai
Pharmacy: [facility] care
[phone]

Original Note:
night club manager reviewed patient's chart and met with patient and daughter at bedside, patient resides at [facility], patient is independent with adl's and uses a walker with ambulation. Patient also has a w/c. night club manager reached out
to [facility] and personal property appraiser is Brigette [phone], nurse will need to contact
[facility]
Report [phone]
[2023-06-02] MEDS: PROTONIX 40 MG PO (15:40)
[2023-06-02] MEDS: CRESTOR 20 MG PO (17:52)
[2023-06-02] MEDS: TOPROL XL 50 MG PO (17:52)
[2023-06-02] MEDS: LASIX 20 MG IV (19:21)
[2023-06-02 21:43] LABS: Troponin I 0.055 ng/ml
[2023-06-02] MEDS: BALMEX CREAM TOPICAL (22:00)
[2023-06-03 03:00] VITALS: BP 115/60
[2023-06-03] MEDS: OCEAN, SALINE MIST 2 SPRAYS NASAL (05:11)
[2023-06-03 05:28] VITALS: BMI 21.5
[2023-06-03 06:07] LABS: % Basophils 0.2 % (0-2); % Immature Granulocytes 0.7 % (0-0.5); % Monocytes 8.5 % (1.7-9.3); % Neutrophils 71.6 % (42.2-75.2); Absolute Immature Granulocytes 0.1 10^3/uL (0-0.05); Absolute Lymphocytes 1.7 10^3/uL (1.2-3.4); Absolute Monocytes 0.8 10^3/uL (0.1-0.6); Absolute Neutrophils 6.3 10^3/uL (1.4-6.5); Hematocrit 25.4 % (39.0-52.0); Hemoglobin 7.9 g/dL (13.0-18.0); Mean Corp Hgb Conc. 31.1 g/dL (33.0-37.0); Mean Corpuscular Hgb 30.9 pg (27.0-31.0); Mean Corpuscular Volume 99.2 fL (80.0-94.0); Nucleated Red Blood Cells % 0.3 % (-); Red Blood Cell Count 2.56 10^6/uL (4.70-6.10); Red Cell Dist. Width 22.2 % (11.5-14.5); White Blood Cell Count 8.8 10^3/uL (4.8-10.8)
[2023-06-03 06:12] LABS: Platelet Count 32 10^3/uL (130-400)
[2023-06-03 06:40] LABS: ALT (SGPT) < 10 U/L (0-50); AST (SGOT) 24 U/L (17-59); Albumin 3.4 g/dl (3.5-5.0); Alkaline Phosphatase 56 U/L (38-126); Blood Urea Nitrogen 36 mg/dl (9-20); Calcium 9.3 mg/dl (8.4-10.2); Carbon Dioxide 30 mmol/L (22-30); Chloride 101 mmol/L (98-107); Estimated Creatinine Clearance 44 ml/min; Glucose 83 mg/dl (70-99); Potassium 4.2 mmol/L (3.5-5.1); Sodium 139 mmol/L (135-145); Total Bilirubin 1.2 mg/dl (0.2-1.3); Total Protein 6.4 g/dl (6.3-8.2)
[2023-06-03 07:00] VITALS: BP 111/61
[2023-06-03] MEDS: BALMEX CREAM 1 APPLIC TOPICAL (09:14)
[2023-06-03] MEDS: PROTONIX 40 MG PO (09:15)
[2023-06-03] MEDS: LASIX 40 MG PO (09:15)
[2023-06-03] MEDS: PEPCID 20 MG PO (09:15)
[2023-06-03] MEDS: CLARITIN 10 MG PO (09:15)
[2023-06-03] MEDS: DETROL LA 4 MG PO (09:15)
[2023-06-03] MEDS: VITAMIN C 250 MG PO (09:15)
--- NOTE | 2023-06-03 10:34 | CM ---
Addendum entered by Gwen Silva RN 06/03/23 11:57:
[facility]
[phone]

[facility]
Report [phone]

Addendum entered by Gwen Silva RN 06/03/23 11:57:
Patient has been changed to inpatient. CM updated daughter. As per daughter, plan for possible discharge today. CM will update [facility] and [facility].
PLAN: Return to [facility] with [facility].
Original Note:
CM met with patient and daughter in room. Daughter was anxious because she was told that patient was under observation and patient will be 100% liable for hospitalization bill. CM advised that [employer] [employer] is billed under Medicare B and does
have a 20% copay. CM confirmed that patient has a secondary that should provide coverage for the 20% obligation.
[2023-06-03 11:00] VITALS: BP 114/60
--- NOTE | 2023-06-03 12:00 | W.PN.HOSP.TC ---
Today's Communication/Plan
-
Ok for DC today
Assessment / Plan
Assessment / Plan
Impression
Presentation with chest pain
Leukocytosis
Conditions prior to admission
CAD/bifascicular block
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
Chronic residual� RIGHT pleural effusion/chronic CHF
Plan
Presentation with chest pain
non-AK Troponin elevation
-Troponin up to 0.055; chuck[place]y related to stress from anemia
-patient s/p 1 unit PRBC with resolution chest pain this AM
-Continue beta-kamari, statin
-Hold aspirin given patient's anemia.
-Cardiac diet.
MDS/smoldering myeloma with chronic pancytopenia
Hgb 7.1 baseline 7.7-8, PLT 33
-Received�Nplate�10�mg/kg�weekly,�Aranesp�300�mcg�weekly, �Zarxio�480�mcg�weekly on , yesterday 06/01/2023 administration
-Follows with oncology for consideration of Neupogen and Nplat
-Follow CBC - next on Monday
-OK for DC
Leukocytosis
-Patient afebrile with severely low platelet count.
-Most likely reactive.
-Continue to monitor WBC count and temperature - resolved this AM
CAD/bifascicular block
-Hx stenting most recent 04/2021 per�recent hospital notes.�Cath in summer 2022, but no intervention.
-Thrombocytopenia.
-Not on aspirin given pancytopenia.
-Stable bifascicular block.
Acute HFrEF
-S/p TAVR, s/p bioprosthetic MVR
-Echocardiogram with ejection fraction 40-45% 05/11/2023.
-Chronic, stable volume status, mild bilateral lower extremity edema.
-continue [employer] lasix
-Consider Tubigrip.
Chronic right pleural effusion/chronic CHF
-Stable, s/p right thoracocentesis 05/11/2023 with 2 L removed.
-Lasix 40 mg daily
Paroxysmal A-fib
-Continue beta-kamari not on aspirin or AC therapy due to anemia.
-EKG with NSR RBBB, bifascicular block, 98 bpm, QTc 505 MS.
Hx NSVT 9 beats recent admit
-Continue beta-kamari
Essential HTN
-Stable.
-Continue metoprolol.
GERD
-Continue famotidine 40 mg daily
HLD
-Continue Crestor
Overactive bladder
-Continue Myrbetriq 50 mg daily
DVT prophylaxis
-SCDs
Anticipated Discharge: Today
Subjective/Interval History
-
Date of Service: June 03, 2023
feeling better this morning
no chest pain
got up with PT
Objective Data
-
Labs:
Laboratory Results
06/03/23
05:20
WBC 8.8
Hgb 7.9 L
Hct 25.4 L
Plt Count 32 L
Sodium 139
Potassium 4.2
Chloride 101
Carbon Dioxide 30
BUN 36 H
Creatinine 1.3
Glucose 83
Calcium 9.3
Total Bilirubin 1.2
AST 24
ALT < 10
Alkaline Phosphatase 56
Vital Signs:
Vital Signs
Temp Pulse Resp BP Pulse Ox
97.9 F 96 18 114/60 100
06/03/23 11:00 06/03/23 11:00 06/03/23 11:00 06/03/23 11:00 06/03/23 11:00
I&O
06/02/23 06/03/23 06/04/23
06:59 06:59 06:59
Intake Total 1020 / 1020
Output Total 300 / 300 2074 / 2074 100 / 100
Balance -300 / -300 -1055 / -1055 -100 / -100
Review of Systems
-
History Source: Patient
All other systems: Reviewed and negative
Physical Exam
-
General: Well Developed, No Apparent Distress and Conversant
HEENT: Normocephalic and Atraumatic
Respiratory: Clear to Auscultation and Non Labored Respirations; Negative Wheezes, Rhonchi or Crackles
Cardiac: Regular Rhythm and S1/S2; Negative Murmur or Rub
GI: Soft, Nontender, Nondistended and Normal Bowel Sounds
Musculoskeletal: No Clubbing, No Cyanosis and No Edema
Skin: Warm and Dry
Neuro: Awake, Alert, Oriented and AO x 3
Psych: Calm
Data Reviewed
-
Diagnostic Radiology: Report Reviewed by me
Labs: Labs Reviewed by me
--- NOTE | 2023-06-03 12:06 | W.PN.CD ---
Today's Communication / Plan
-
continue medical therapy for CAD.
treating anemia per hospitalist.
Impression / Plan
-
Chest pain: epigastric burning started after an argument, 09/17 now 06/17.
- abnormal troponin 0.039, 0.050, 0.055, trend to peak.
- also with MDS as plt <30 and Hgb 7.1.
- differential diagnosis - acute anemia, angina, reflux, anxiety.
- plan to optimize medical management for all issues.
Elevated troponin: acute due to acute anemia.
- trend troponin.
- treat anemia, s/p transfusion.
- denies any cardiac symptoms.
CAD: s/p stenting most recent 04/2021 per recent hospital notes.
- Cath in summer 2022, but no intervention.�
- not on ASA due to thrombocytopenia/MDS.
- Continue statin and BB.
Acute HFrEF (40-45%):
- updated echo -> EF 40-45%, TAVR OK, PASP 60.
- chronic stable, euvolemic with slight LE edema.
- add tubigrip stockings.
Pleural effusion:
- Stable status-post thoracentesis.
Bifascicular block: stable.
PVCs: continue BB.
- asymptomatic.
- echo 05/11/23 with EF 40-45%.
Bio AVR:
- 2013.
- Then TAVR 04/2021 . Records requested.
- stable on echo 05/11/23.
HTN: stable on meds, continue.
Subjective:
No major events overnight.� Continues to improve with diuresis.
feels well and denies any chest pain.
Data
TTE 05/11/2023:
Left ventricular ejection fraction is approximately 40-45%. Mild global hypokinesis with severe inferolateral wall hypokinesis/akinesis.
Mild to moderate mitral regurgitation.
Status-post TAVR in previous bioprosthetic aortic valve replacement; peak/mean�gradients of 33/17 mmHg.� Trace aortic regurgitation.
Mild to moderate tricuspid regurgitation. Estimated pulmonary artery pressure of 55-60 mmHg.�Right and left pleural effusion present.
�
Physical Exam
Vital Signs/Labs
Vital Signs
Temp Pulse Resp BP Pulse Ox
97.9 F 96 18 114/60 100
06/03/23 11:00 06/03/23 11:00 06/03/23 11:00 06/03/23 11:00 06/03/23 11:00
06/02/23 06/03/23 06/04/23
06:59 06:59 06:59
Actual Weight 76.459 kg 75.92 kg
06/03/23 05:20
06/03/23 05:20
Triglycerides 90 mg/dl (10-149) 06/02/23 06:46
LDL Cholesterol, Calc 34 mg/dl 06/02/23 06:46
VLDL Cholesterol, Calc 18 mg/dl (0-30) 06/02/23 06:46
HDL Cholesterol 26 mg/dl 06/02/23 06:46
06/01/23
19:17
Xvx-O-Yxsmbllwzmy Pept 7450
LAB Results
06/01/23 06/01/23 06/02/23
19:17 22:19 06:46
Troponin I 0.018 0.025 D 0.039 H*
06/02/23 06/02/23
10:26 21:10
Troponin I 0.050 H* D 0.055 H*
Physical Exam
Constitutional: No acute distress and Comfortable
EENT: Anicteric and Moist mucous membranes
Cardiovascular: Rhythm & rate is regular
Respiratory: Respiratory effort normal and Lungs clear to auscul.
GI: Soft and Normal bowel sounds
Neuro/Psych: AO x 3
Other: Skin (warm, dry )
Data Reviewed
-
Date of Service: June 03, 2023
Medical Decision Making: Reviewed Test Results
EKG: Tracing Personally Visualized and interpreted
Echo: Report Reviewed by me
X-Ray/CT/US/MRI/NUC/PET: Report Reviewed by me
Labs: Labs Reviewed by me
--- NOTE | 2023-06-03 12:06 | W.DS.TRANS ---
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
-
Discharge Instructions:
Discharge Diagnosis/Procedures symptomatic anemia
Diet 2 Gram Sodium
Activity As tolerated
Driving Restrictions As prior to admission
Bathing Restrictions None
Blood Work CBC as planned for Monday 06/05
Specialty Instructions Weigh Daily
Instructions: *CBC Heart Failure Instructions
Stand-Alone Forms:
Changes to Home Medications: Yes
Discharge Medications:
DC Medications w/original date entered in QBE
rosuvastatin 20 mg tablet 20 mg PO QPM High Cholesterol 07/17/13
ascorbic acid (vitamin C) 250 mg tablet (Vitamin C) 250 mg PO DAILY Supplement 03/01/23
epoetin isatu 40,000 unit/mL injection solution (Procrit) 40,000 unit SC TH low RBC 03/01/23
famotidine 40 mg tablet 40 mg PO DAILY Gastrointestinal Issue 03/01/23
mirabegron 50 mg tablet,extended release 24 hr (Myrbetriq) 50 mg PO DAILY Urinary Issue 03/01/23
oxycodone-acetaminophen 5 mg-325 mg tablet 1 tab PO Q8HPRN PRN severe pain 03/01/23
polyethylene glycol 3350 17 gram oral powder packet (Miralax) 17 g PO DAILYPRN PRN constipation 03/01/23
acetaminophen 325 mg tablet 650 mg PO Q4HPRN PRN mild pain/JACOME/temp> 100.4F #60 tabs 03/13/23
miconazole nitrate 2 % topical ointment (Critic-Aid Clear AF (miconazole)) 1 applic topical BID skin rash 05/10/23
zinc oxide-vitamin B5-vit E 11.3% topical cream (Balmex Adult Care) 1 applic topical BID sacrum and scrotum 05/10/23
furosemide 40 mg tablet 40 mg PO DAILY #30 tabs 05/15/23
metoprolol succinate 50 mg tablet,extended release 24 hr 50 mg PO QPM #30 tabs 05/15/23
loratadine 10 mg tablet 10 mg PO DAILY Allergies 06/01/23
potassium chloride 20 mEq tablet,extended release 40 meq PO BID Supplement 06/02/23
pantoprazole 40 mg tablet,delayed release 40 mg PO DAILY #30 tabs 06/03/23
Home Medication Changes
addition of protonix
Pending Results: No
--- NOTE | 2023-06-03 13:03 | W.DCSUMMARY ---
Discharge Summary
Discharge Data
Date of Admission: 06/03/23
Date of Discharge: 06/03/23
-
Pending Results: No
Hospital Course
Discharging Physician : Dr. Leigh Gould
Disposition : Home with Home Health
Primary care physician : Dr. Jeison Mchperson
Principal Discharge diagnosis : Symptomatic Anemia
Hospital Course :
Mr. Asim Zhong is a 87 yo man with hx atrial fibrillation, HTN, heart failure mildly reduced EF (40-45%), MDS, HTN, HLD who presented to the ER with burning epigastric discomfort. This followed a stressful discussion with his son. Triage
vitals stable. Labs with WBC 16, Hg 8.1, Troponin 0.018 (climbed to 0.055). He was admitted to medicine with cardiology consulting. Differential included NSTEMI versus symptomatic anemia versus gastritis. He was started on Protonix. Unable to
give patient aspirin 2/2 thrombocytopenia. His Hg dropped to 7.1 and he was transfused 1 unit PRBC with extra dose of lasix. Leukocytosis normalized prior to DC, likely stress reaction. Patient's symptoms are resolved prior to discharge. He worked
well with physical therapy and will be discharged home with home health. He will continue with his weekly CBC (in 2 days) and transfusions as needed as outpatient. He is discharged with a new script for Protonix.
Time spent on discharge was 31 minutes.
Important imaging findings :
Procedure findings :
Discharge Plan
-
Discharge Diagnosis/Procedures: symptomatic anemia
Diet: 2 Gram Sodium
Activity: As tolerated
Driving Restrictions: As prior to admission
Bathing Restrictions: None
Blood Work: CBC as planned for Monday 06/05
Specialty Instructions: Weigh Daily- Call MD for wt gain/loss 3 lbs overnight/5 lbs in 1 week
Activity Restrictions/Additional Instructions:
You are newly started on Protonix for gastritis symptoms.
Instructions: *CBC Heart Failure Instructions
Referrals:
Bianca Mai, DO [Family Provider] - in less than 1 week
Prescriptions:
New
pantoprazole 40 mg Tablet,Delayed Release (Dr/Ec)
40 mg PO DAILY Qty: 30 0RF
Continued
rosuvastatin 20 MG tablet
20 mg PO QPM
polyethylene glycol 3350 [Miralax] 17 gram Powder In Packet
17 g PO DAILYPRN PRN (Reason: constipation)
famotidine 40 mg Tablet
40 mg PO DAILY
oxycodone-acetaminophen 5-325 mg Tablet
1 tab PO Q8HPRN PRN (Reason: severe pain)
Procrit 40,000 unit/mL Solution
40,000 unit SC TH
ascorbic acid (vitamin C) [Vitamin C] 250 mg Tablet
250 mg PO DAILY
Hold Instructions: Resume on 03/29/23.
Myrbetriq 50 mg Tablet Extended Release 24 Hr
50 mg PO DAILY
acetaminophen 325 mg Tablet
650 mg PO Q4HPRN PRN (Reason: mild pain/JACOME/temp> 100.4F) Qty: 60 0RF
Critic-Aid Clear AF(miconazol) 2 % Ointment
1 applic TOPICAL BID
Balmex Adult Care 11.3 % Cream
1 applic TOPICAL BID
furosemide 40 mg Tablet
40 mg PO DAILY Qty: 30 0RF
metoprolol succinate 50 mg Tablet Extended Release 24 Hr
50 mg PO QPM Qty: 30 0RF
loratadine 10 mg Tablet
10 mg PO DAILY
potassium chloride 20 mEq tablet extended release
40 meq PO BID
Discharge Orders:
Discharge Patient (As Directed); Ordered 06/03/23
Ordered By: Leigh Gould
== END 2023-06-03 15:00 | disposition home health service (06) | DRG 811 ==
LOC: 4 WEST ACU 11:54
PROVIDERS: Clinical Nurse Specialist Family Health; Emergency Medicine; ADMITTING PHYSICIAN Hospitalist; ATTENDING PHYSICIAN Student in an Organized Health Care Education/Training Program; EMERGENCY PHYSICIAN Emergency Medicine; FAMILY PHYSICIAN Hospitalist; OTHER PHYSICIAN Internal Medicine Cardiovascular Disease
PROC: 30233N1 Transfusion of Nonautologous Red Blood Cells into Peripheral Vein, Percutaneous Approach (ICD-10-PCS; 2023-06-02)
DX: D46.9 Myelodysplastic syndrome, unspecified (principal); I50.21 Acute systolic (congestive) heart failure; D61.818 Other pancytopenia; I45.2 Bifascicular block; I5A Non-ischemic myocardial injury (non-traumatic); R07.9 Chest pain, unspecified; I25.10 Atherosclerotic heart disease of native coronary artery without angina pectoris; Z66 Do not resuscitate; I11.0 Hypertensive heart disease with heart failure; I48.0 Paroxysmal atrial fibrillation; I27.20 Pulmonary hypertension, unspecified; K21.9 Gastro-esophageal reflux disease without esophagitis; E78.00 Pure hypercholesterolemia, unspecified; D47.2 Monoclonal gammopathy; N40.0 Benign prostatic hyperplasia without lower urinary tract symptoms; Z95.3 Presence of xenogenic heart valve; Z87.891 Personal history of nicotine dependence; Z95.5 Presence of coronary angioplasty implant and graft; Z88.0 Allergy status to penicillin
CPT/HCPCS: 36415; 71046; 80053; 80061; 83880; 84484; 85025; 86850; 86900; 86901; 86920; 87070; 87147; 93005; 97161; 97165; 99285; P9016

== ENCOUNTER → 2023-06-05 08:46 | Outpatient (REF) | payer MEDICARE, SELFPAY ==
[2023-06-05 12:13] LABS: Hemoglobin 8.8 g/dL (13.0-18.0); Mean Corp Hgb Conc. 30.3 g/dL (33.0-37.0); Mean Corpuscular Hgb 30.3 pg (27.0-31.0); Platelet Count 29 10^3/uL (130-400); Red Cell Dist. Width 20.9 % (11.5-14.5); White Blood Cell Count 3.5 10^3/uL (4.8-10.8)
[2023-06-05 13:35] LABS: Absolute Neutrophils -Man Diff 1.6 10^3/uL (1.4-6.5); Band Neutrophils 3 % (0-3); Segmented Neutrophils 44 % (42-75)
[2023-06-05 13:36] LABS: Atypical Lymphocytes 3 %; Lymphocytes 28 % (20-51); Monocytes 21 % (2-9); Myelocytes 1 % (-)
[2023-06-05 13:38] LABS: Platelets Checked YES
[2023-06-05 13:39] LABS: Normal RBC Morphology No
[2023-06-05 13:41] LABS: Schistocytes FEW
[2023-06-05 13:43] LABS: Tear Drop Red Blood Cells FEW
[2023-06-05 13:45] LABS: Total Cells Counted 100
== END ==
LOC: REG 08:46
PROVIDERS: ATTENDING PHYSICIAN Internal Medicine Hematology & Oncology
DX: D61.818 Other pancytopenia (principal); D46.A Refractory cytopenia with multilineage dysplasia
CPT/HCPCS: 36415; 85025

== ENCOUNTER → 2023-06-12 08:22 | Outpatient (REF) | payer MEDICARE, SELFPAY ==
[2023-06-12 11:12] LABS: Hematocrit 27.2 % (39.0-52.0); Hemoglobin 8.4 g/dL (13.0-18.0); Mean Corp Hgb Conc. 30.9 g/dL (33.0-37.0); Mean Corpuscular Hgb 30.9 pg (27.0-31.0); Platelet Count 26 10^3/uL (130-400); Red Blood Cell Count 2.72 10^6/uL (4.70-6.10); Red Cell Dist. Width 20.2 % (11.5-14.5); White Blood Cell Count 4.7 10^3/uL (4.8-10.8)
[2023-06-12 11:47] LABS: Blood Urea Nitrogen 31 mg/dl (9-20); Calcium 9.5 mg/dl (8.4-10.2); Carbon Dioxide 28 mmol/L (22-30); Chloride 98 mmol/L (98-107); Glucose 82 mg/dl (70-99); Potassium 4.5 mmol/L (3.5-5.1); Sodium 136 mmol/L (135-145); eGFR 58.89
[2023-06-12 13:15] LABS: Anisocytosis 1+; Band Neutrophils 1 % (0-3); Lymphocytes 38 % (20-51); Monocytes 17 % (2-9); Myelocytes 2 % (-); Normal RBC Morphology No; Ovalocytes 2+; Platelets Checked Yes; Segmented Neutrophils 42 % (42-75); Total Cells Counted 100
== END ==
LOC: REG 08:22
PROVIDERS: ATTENDING PHYSICIAN Internal Medicine Hematology & Oncology; REFERRING PHYSICIAN Nurse Practitioner
DX: D61.818 Other pancytopenia (principal); D46.A Refractory cytopenia with multilineage dysplasia; I50.20 Unspecified systolic (congestive) heart failure
CPT/HCPCS: 36415; 80048; 85025

== ENCOUNTER → 2023-06-19 06:44 | Outpatient (REF) | payer MEDICARE, SELFPAY ==
[2023-06-19 11:41] LABS: Hematocrit 24.8 % (39.0-52.0); Hemoglobin 7.7 g/dL (13.0-18.0); Mean Corpuscular Hgb 30.1 pg (27.0-31.0); Mean Corpuscular Volume 96.9 fL (80.0-94.0); Platelet Count 19 10^3/uL (130-400); Red Blood Cell Count 2.56 10^6/uL (4.70-6.10); Red Cell Dist. Width 19.9 % (11.5-14.5); White Blood Cell Count 4.6 10^3/uL (4.8-10.8)
[2023-06-19 13:11] LABS: Absolute Neutrophils -Man Diff 2.3 10^3/uL (1.4-6.5); Atypical Lymphocytes 4 %; Band Neutrophils 6 % (0-3); Blasts 3 % (-); Lymphocytes 26 % (20-51); Metamyelocytes 1 % (-); Monocytes 15 % (2-9); Segmented Neutrophils 45 % (42-75)
[2023-06-19 13:12] LABS: Anisocytosis 1+; Macrocytosis 1+; Normal RBC Morphology No; Ovalocytes 3+; Platelets Checked Yes; Poikilocytosis 1+; Schistocytes Slight; Total Cells Counted 100
== END ==
LOC: REG 06:44
PROVIDERS: ATTENDING PHYSICIAN Internal Medicine Hematology & Oncology
DX: D61.818 Other pancytopenia (principal); D46.A Refractory cytopenia with multilineage dysplasia
CPT/HCPCS: 36415; 85025

== ENCOUNTER → 2023-06-26 15:19 | Outpatient (REF) | payer MEDICARE, SELFPAY | LOC: REG 15:19 | PROVIDERS: ATTENDING PHYSICIAN Internal Medicine Hematology & Oncology; FAMILY PHYSICIAN Hospitalist | DX: D61.818 Other pancytopenia (principal); D46.A Refractory cytopenia with multilineage dysplasia | CPT/HCPCS: 36415; 85025; 86850; 86900; 86901; 86920 ==

== ENCOUNTER → 2023-07-03 10:24 | Outpatient (REF) | payer MEDICARE, SELFPAY ==
[2023-07-03 10:58] LABS: Hematocrit 25.1 % (39.0-52.0); Hemoglobin 7.8 g/dL (13.0-18.0); Mean Corp Hgb Conc. 31.1 g/dL (33.0-37.0); Mean Corpuscular Hgb 29.8 pg (27.0-31.0); Mean Corpuscular Volume 95.8 fL (80.0-94.0); Nucleated Red Blood Cells % 0.4 % (-); Red Blood Cell Count 2.62 10^6/uL (4.70-6.10); Red Cell Dist. Width 17.7 % (11.5-14.5); White Blood Cell Count 5.7 10^3/uL (4.8-10.8)
[2023-07-03 12:27] LABS: Blood Urea Nitrogen 35 mg/dl (9-20); Calcium 9.2 mg/dl (8.4-10.2); Carbon Dioxide 25 mmol/L (22-30); Chloride 101 mmol/L (98-107); Glucose 98 mg/dl (70-99); Potassium 4.5 mmol/L (3.5-5.1); Sodium 136 mmol/L (135-145); eGFR > 60.00
[2023-07-05 11:42] LABS: Absolute Neutrophils -Man Diff 1.4 10^3/uL (1.4-6.5); Band Neutrophils 6 % (0-3); Lymphocytes 25 % (20-51); Monocytes 11 % (2-9); Segmented Neutrophils 19 % (42-75)
[2023-07-05 11:43] LABS: Atypical Lymphocytes 3 %; Blasts 25 % (-); Metamyelocytes 7 % (-); Myelocytes 4 % (-)
[2023-07-05 11:47] LABS: Platelet Count 10 10^3/uL (130-400)
[2023-07-05 11:53] LABS: Normal RBC Morphology No; Total Cells Counted 100
[2023-07-05 11:54] LABS: Hypochromasia 2+; Ovalocytes 2+
[2023-07-05 14:25] LABS: Platelets Checked Yes
== END ==
LOC: REG 10:24
PROVIDERS: ATTENDING PHYSICIAN Internal Medicine Hematology & Oncology; FAMILY PHYSICIAN Hospitalist; REFERRING PHYSICIAN Internal Medicine Cardiovascular Disease
DX: I50.20 Unspecified systolic (congestive) heart failure (principal); D61.818 Other pancytopenia; D46.A Refractory cytopenia with multilineage dysplasia
CPT/HCPCS: 36415; 80048; 85025

== ENCOUNTER 2023-07-07 08:23 | Outpatient (RCR) | payer MEDICARE, SELFPAY ==
[2023-06-27] VITALS (7 sets, daily range): BP systolic 92–116; BP diastolic 45–56
--- NOTE | 2023-06-27 11:04 | SURV.HPR ---
Assessment / Plan
- -
Assessment:
Undergoing treatment for MDS requiring transfusions as needed for Hgb <7.5 and platelets <15 for palliation. Cardiac history of CHF with 2 recent admissions. Here today for blood transfusion of 2 units for hgb 7.6 and platelets of 22.
Plan:
Transfuse 2 units PRBCs as ordered.
Between units give 20mg IV lasix (took 40mg PO this am). Dr. Washington in agreement.
Continue fluid restriction per cardiology and check weight daily per cardiology.
Follow up with Dr. Washington as scheduled 07/13/2023 and cardiology as scheduled 07/2023.
Contact info provided as well as info for Dr. Washington.
Patient and daughter verbalized understanding to all and will call back with any additional questions or concerns.
Medical History
- Chief Complaint
Date of Service: 06/27/23 (prior to blood transfusion)
- Interval History
Comes to today's appointment accompanied by daughter. Currently in assisted living.
History of MDS under the care of Dr. Washington. Last seen 04/20/2023. Has received tranfusions in the past. Receieved Nplate (romiplostim) and
Aranesp 300 mcg 06/22/2023. hgb 06/26/2023 is 6.7 platelets 22. Undergoing supportive care for MDS. States saw PCP last week but note unavailable for review. Has had two recent admissions for CHF and was diuresed. With edema to lower extremities
this morning but states did not on compression stockings. Overall reports feeling well has no complaints at today's visit with the exception of fatigue and shortness of breath on exertion.
- Past Medical History
Past Medical History: Cancer (smoldering MM, MDS, pancytopenia), CHF, Valvular Disease (s/p cardiac stent), Other (T12 compression fx, A fib)
Past Surgical History: Appendectomy, Cardiac (aortic valve replacement 2013), Other (hernia repair)
- Social History
Tobacco: Non-smoker
Alcohol: Occasional (1-3 per week)
Drug: None
Personal:
Living: Assisted Living
Employment: Retired
- Family History
Family History: Not pertinent
- Allergies & Home Medications
Allergies
Allergy/AdvReac Type Severity Reaction Status Date / Time
Penicillins Allergy Mild Rash Verified 06/27/23 10:38
Home Medications
rosuvastatin 20 mg tablet 20 mg PO QPM High Cholesterol 07/17/13
ascorbic acid (vitamin C) 250 mg tablet (Vitamin C) 250 mg PO DAILY Supplement 03/01/23
epoetin isatu 40,000 unit/mL injection solution (Procrit) 40,000 unit SC TH low RBC 03/01/23
famotidine 40 mg tablet 40 mg PO DAILY Gastrointestinal Issue 03/01/23
mirabegron 50 mg tablet,extended release 24 hr (Myrbetriq) 50 mg PO DAILY Urinary Issue 03/01/23
oxycodone-acetaminophen 5 mg-325 mg tablet 1 tab PO Q8HPRN PRN severe pain 03/01/23
polyethylene glycol 3350 17 gram oral powder packet (Miralax) 17 g PO DAILYPRN PRN constipation 03/01/23
acetaminophen 325 mg tablet 650 mg PO Q4HPRN PRN mild pain/JACOME/temp> 100.4F #60 tabs 03/13/23
miconazole nitrate 2 % topical ointment (Critic-Aid Clear AF (miconazole)) 1 applic topical BID skin rash 05/10/23
zinc oxide-vitamin B5-vit E 11.3% topical cream (Balmex Adult Care) 1 applic topical BID sacrum and scrotum 05/10/23
furosemide 40 mg tablet 40 mg PO DAILY #30 tabs 05/15/23
metoprolol succinate 50 mg tablet,extended release 24 hr 50 mg PO QPM #30 tabs 05/15/23
loratadine 10 mg tablet 10 mg PO DAILY Allergies 06/01/23
potassium chloride 20 mEq tablet,extended release 40 meq PO BID Supplement 06/02/23
pantoprazole 40 mg tablet,delayed release 40 mg PO DAILY #30 tabs 06/03/23
Review of Systems
- -
History Source: Patient, Family
A 12 point review of systems was negative except as noted: Yes
All other systems: Reviewed and negative
General: Reports: Fatigue, Weakness
Skin: Reports: Other (easy bruising)
Cardiac: Reports: Dyspnea on Exertion
GI: Reports: Appetite Good, Indigestion
Vascular: Reports: Leg Edema
Patient reports the following physical concerns:
Physical Exam
- -
General: Well Developed, Well Nourished, No Apparent Distress, Male, Comfortable
HEENT: Normocephalic, No cervical or supraclavicular adenopathy bilaterally
Respiratory: Clear to Auscultation, Non Labored Respirations
Cardiac: Regular Rhythm, Positive S1/S2
GI: Soft, Non Tender, Non Distended, Normal Bowel Sounds
Musculoskeletal: Edema, Right Upper Extremity (1+ pitting), Edema, Right Lower Extremity (1+ pitting)
Skin: Warm, Dry
Neuro: AAOx3, Nonfocal/grossly Intact
Hematologic/Lymphatic: No Lymphadenopathy
Psych: Calm, Intact Judgement/Insight, Interactive & Cooperative
--- NOTE | 2023-06-27 13:43 | W.PN.UPDATE ---
Update Note
- Progress Note Update
06/27/23 13:43
Patient originally planned to have 20mg IV lasix after 1 unit of blood given cardiac history. Held due to hypotension. Will plan to give after infusion. Reviewed previous VS and BP. History of hypotension. Patient seen at bedside and without
complaints of SOB. Did note some tingling to fourth and fifth fingers on each hand but resolved with movement. Otherwise ok. Lungs CTA. HRR. Will continue to monitor.
[2023-06-27] MEDS: LASIX 20 MG IV (15:55)
[2023-07-06 11:44] LABS: Hematocrit 24.2 % (39.0-52.0); Hemoglobin 7.7 g/dL (13.0-18.0); Mean Corp Hgb Conc. 31.8 g/dL (33.0-37.0); Mean Corpuscular Hgb 30.3 pg (27.0-31.0); Mean Corpuscular Volume 95.3 fL (80.0-94.0); Red Blood Cell Count 2.54 10^6/uL (4.70-6.10); Red Cell Dist. Width 17.6 % (11.5-14.5); White Blood Cell Count 4.4 10^3/uL (4.8-10.8)
[2023-07-06 12:44] LABS: Segmented Neutrophils 17 % (42-75)
[2023-07-06 12:45] LABS: Absolute Neutrophils -Man Diff 0.8 10^3/uL (1.4-6.5); Atypical Lymphocytes 1 %; Band Neutrophils 3 % (0-3); Blasts 16 % (-); Lymphocytes 38 % (20-51); Metamyelocytes 3 % (-); Monocytes 16 % (2-9); Myelocytes 6 % (-)
[2023-07-06 12:46] LABS: Normal RBC Morphology No; Nucleated Red Blood Cells 1 (-); Ovalocytes 2+; Platelets Checked Yes; Total Cells Counted 100
[2023-07-06 12:47] LABS: Platelet Count 7 10^3/uL (130-400)
[2023-07-07 08:57] VITALS: BP 103/47
[2023-07-07 09:14] VITALS: BP 100/43
[2023-07-07 09:52] VITALS: BP 105/45
[2023-07-07 10:07] VITALS: BP 105/45
[2023-07-07 10:24] VITALS: BP 93/41
[2023-07-07 12:56] VITALS: BP 115/52
== END 2023-07-09 23:59 | disposition home or self-care (01) ==
LOC: OID 08:23
PROVIDERS: ATTENDING PHYSICIAN Internal Medicine Hematology & Oncology; FAMILY PHYSICIAN Hospitalist; PRIMARYCARE PHYSICIAN Urology
DX: D61.818 Other pancytopenia (principal)
CPT/HCPCS: 36415; 36430; 85025; 86850; 86900; 86901; 86920; 96374; P9016; P9073

== ENCOUNTER → 2023-07-10 10:22 | Outpatient (REF) | payer MEDICARE, SELFPAY ==
[2023-07-10 11:16] LABS: Hemoglobin 7.4 g/dL (13.0-18.0); Mean Corp Hgb Conc. 32.2 g/dL (33.0-37.0); Mean Corpuscular Hgb 29.8 pg (27.0-31.0); Mean Corpuscular Volume 92.7 fL (80.0-94.0); Platelet Count 9 10^3/uL (130-400); Red Blood Cell Count 2.48 10^6/uL (4.70-6.10); Red Cell Dist. Width 17.2 % (11.5-14.5); White Blood Cell Count 6.8 10^3/uL (4.8-10.8)
[2023-07-10 12:37] LABS: Segmented Neutrophils 26 % (42-75)
[2023-07-10 12:38] LABS: Absolute Neutrophils -Man Diff 1.9 10^3/uL (1.4-6.5); Band Neutrophils 3 % (0-3); Blasts 18 % (-); Lymphocytes 31 % (20-51); Metamyelocytes 1 % (-); Monocytes 20 % (2-9); Myelocytes 1 % (-); Normal RBC Morphology No; Ovalocytes Slight; Platelets Checked Yes; Total Cells Counted 100
== END ==
LOC: REG 10:22
PROVIDERS: ATTENDING PHYSICIAN Internal Medicine Hematology & Oncology
DX: D61.818 Other pancytopenia (principal); D46.A Refractory cytopenia with multilineage dysplasia
CPT/HCPCS: 36415; 85025

== ENCOUNTER 2023-07-12 09:11 | Outpatient (RCR) | payer MEDICARE, SELFPAY ==
[2023-07-12 10:10] VITALS: BP 118/53
[2023-07-12 10:27] VITALS: BP 96/55
[2023-07-12 13:17] VITALS: BP 101/45
[2023-07-12 13:47] VITALS: BP 101/44
[2023-07-12 14:04] VITALS: BP 98/44
[2023-07-12 14:54] VITALS: BP 105/53
== END 2023-08-08 23:59 | disposition home or self-care (01) ==
LOC: OID 09:11
PROVIDERS: ATTENDING PHYSICIAN Internal Medicine Hematology & Oncology; FAMILY PHYSICIAN Hospitalist; PRIMARYCARE PHYSICIAN Urology
DX: D61.818 Other pancytopenia (principal)
CPT/HCPCS: 36415; 36430; 86850; 86900; 86901; 86920; P9016; P9073